=== PATIENT | female | born 1995 | race Caucasian/White ===

== ENCOUNTER 2019-08-26 06:47 | Observation (INO) | payer OTHER, SELFPAY ==
[2019-08-26] VITALS (20 sets, daily range): BP systolic 125–143; BP diastolic 64–81; PULSE 85–115; RESP 16; TEMP 36.8; O2SAT 98–100; BMI 36.1
[2019-08-26 07:39] LABS: Add Urine Microscopic? YES; Amorphous Sediment Urine Few; Appearance Urine Cloudy (Clear); Bacteria Urine Trace /hpf; Bilirubin Urine Negative (Negative); Blood Urine Negative (Negative); Color Urine Yellow (Yellow); Glucose Urine UA Negative (Negative); Ketones Urine Negative (Negative); Leukocyte Esterase Ur 1+ LEU/UL (Negative); Mucus Urine Rare /lpf; Nitrate Urine Negative (Negative); Protein Urine Negative (Negative); Squamous Epithelial Cell Urine Occasional /hpf (Few); Urobilinogen Urine Negative mg/dL (<2.0)
--- NOTE | 2019-08-26 07:54 | OBADM ---
This patient, Rebeca Gomes, admitted to the OB room 117 at 0642 for observation for c/o contractions. Patient/family oriented to hospital policies and general routines including ID bracelet, bed and alarms, visiting hours, pain management, procedures, bathroom and other care routines, personal items, smoking policy, room service/diet, and visiting hours. Patient/Family are encouraged to report perceived risks to care and to ask questions if they do not understand what they are told or what they should do.
[2019-08-26] MEDS: TERBUTALINE SULFATE 1 MG/ML VIAL 0.25 MG SUB-Q (08:32)
[2019-08-26] MEDS: LACTATED RINGERS 1,000 ML 75 ML IV CONT (08:32)
[2019-08-26] MEDS: MAGNESIUM SULF 4 GM/WATER100ML 4 GM/100 ML BAG IVPB (08:35)
[2019-08-26] MEDS: BETAMETHASONE SOD PHOS/ACETATE 30 MG/5 ML VIAL 12 MG IM (08:38)
--- NOTE | 2019-08-26 08:49 | PM.IMHP ---
H&P: HPI History of Present Illness Chief complaint: Contractions Narrative: Rebeca Gomes is a 24 year old female G1 at 27 1/7 wks here with labor. Patient with onset of contractions at 430 am that were stronger than on arrival. Patient now with minimal contractions and comfortable. No leaking of fluid or bleeding noted. course uncomplicated until this point. On initial exam with RN, patient cervix 4-5/80/BBOW. Bedside u/s shows vertex infant with normal fluid. Patient given terbutaline intially and is now being loaded with magnesium sulfate 4 g then 2 g/h. Steroids have been given. Also, premedicated with benadryl and will give ancef. Discussed with Dr. Enciso, chief resident at [facility], and will have transfer team in route and recheck patient 1 hour after last check. If unchanged or minimal change, will transfer to [facility]. Plan of care explained to patient and her family. Questions answered. [facility] Past Medical History Medical History (Updated 08/26/19 @ 08:58 by Comfort Seymour MD) Abscess of neck HSV infection No symptoms currently. No lesions visible. Has been taking valtrex. Retained myringotomy tube with complications Surgical History Surgical History (Updated 08/26/19 @ 08:56 by Comfort Seymour MD) S/P appy Social History Social History Gender identity (if verbalized by the patient): Female Meds Home Medications and Allergies Home Medications Medication Instructions Recorded Confirmed Type metoclopramide HCl [Reglan] 10 mg PO Q6H PRN #30 tablet 07/31/19 08/26/19 Rx valacyclovir [Valtrex] 500 mg PO DAILY 07/31/19 08/26/19 History PNV cmb#95-ferrous fumarate-FA 1 tablet PO DAILY 08/26/19 08/26/19 History [] cholecalciferol (vitamin D3) 2,000 unit PO DAILY 08/26/19 08/26/19 History [Vitamin D3] famotidine [Pepcid] 20 mg PO BID 08/26/19 08/26/19 History Allergies Allergy/AdvReac Type Severity Reaction Status Date / Time nitrofurantoin Allergy Unknown VOMITING Verified 07/31/19 11:52 Penicillins Allergy Unknown Hives Verified 08/26/19 07:33 vancomycin Allergy Unknown Redness of Verified 08/26/19 07:33 Skin sulfamethoxazole AdvReac Unknown VOMITING Verified 08/26/19 07:40 trimethoprim AdvReac Unknown VOMITING Verified 08/26/19 07:40 azithromycin AdvReac Vomiting Verified 08/26/19 07:40 Vital Signs Vital Signs - 24 hr 08/26/19 07:12 08/26/19 08:27 08/26/19 08:32 Pulse Rate 86 87 Blood Pressure 125/64 136/81 Pulse Oximetry 100 100 08/26/19 08:37 08/26/19 08:39 08/26/19 08:41 Pulse Rate Blood Pressure Pulse Oximetry 100 100 100 08/26/19 08:46 Pulse Rate Blood Pressure Pulse Oximetry 100 Exam Resp: Auscultation: clear to auscultation bilaterally Cardio: Rate: regular rate Rhythm: regular rhythm GI: GI Palp: Yes soft : Speculum Exam - Cervix: cervical os open (4-5 cm/ 80/BBOW) Psych: Mental Status: mental status grossly normal H&P: Results Labs Labs: Urine 08/26/19 Range/Units 07:27 Urine Color Yellow (Yellow) Urine Appearance Cloudy H (Clear) Urine pH 8.0 (5.0-9.0) Ur Specific [place] 1.010 (1.001-1.035) Urine Protein Negative (Negative) mg/dL Urine Glucose (UA) Negative (Negative) mg/dL Assessment and Plan Assessment and plan (1) 27 weeks gestation of : Code(s): Z3A.27 - 27 weeks gestation of Status: Acute (2) labor: Code(s): O60.00 - labor without delivery, unspecified trimester Status: Acute Assessment and Plan: s/p steroids Terb x 1 Magnesium sulfate 4 g and then 2g/h Benadryl then Ancef 2 g Plan to recheck cervix and if stable will transfer to [facility]. If changed, will deliver here.
[2019-08-26] MEDS: ceFAZolin 2 GM/D5W 50 ML 2 GM/50 ML BAG IVPB (09:10)
[2019-08-26] MEDS: MAGNESIUM SULF 20GM/WATER500ML 500 ML 50 MG IV CONT (09:25)
== END 2019-08-26 14:07 | disposition short-term general hospital (02) ==
LOC: ANHLDR 08-29 07:55 → ANHOBPP 08-29 07:55
PROVIDERS: Admitting Provider Obstetrics & Gynecology Gynecology; PCP Obstetrics & Gynecology; Visit Provider Obstetrics & Gynecology Gynecology
DX: O60.02 Preterm labor without delivery, second trimester (principal); O98.512 Other viral diseases complicating pregnancy, second trimester; B00.9 Herpesviral infection, unspecified; Z3A.27 27 weeks gestation of pregnancy; Z79.899 Other long term (current) drug therapy; Z88.0 Allergy status to penicillin; Z88.1 Allergy status to other antibiotic agents; Z88.2 Allergy status to sulfonamides; Z88.3 Allergy status to other anti-infective agents
CPT/HCPCS: 81001; 87086; 87088; 96361; 96365; 96372; 96375; G0378; G0379; J0690; J0702; J1200; J3105; J3475; J7120

== ENCOUNTER 2019-10-22 04:49 | Observation (INO) | payer BC, SELFPAY ==
[2019-10-22 06:31] VITALS: BP 123/72; PULSE 88
[2019-10-22 06:46] VITALS: BP 130/81; PULSE 82
[2019-10-22 07:00] VITALS: TEMP 36.8
[2019-10-22 07:01] VITALS: BP 132/86; PULSE 79
[2019-10-22 07:16] VITALS: BMI 29.3
--- NOTE | 2019-10-22 07:17 | LDADM ---
This patient, Rebeca Gomes, was admitted to Labor/Delivery/Recovery 105 on 10/22/19 at 04:49. Plans for labor, pain management and were discussed with patient. Patient/family oriented to hospital policies and general routines including ID bracelet, bed and alarms, visiting hours, pain management, procedures, bathroom and other care routines, personal items, smoking policy, room service/diet and guest tray routines, security routines, and visiting hours. Patient/Family are encouraged to report perceived risks to care and to ask questions if they do not understand what they are told or what they should do. See OBIX for further documentation.
--- NOTE | 2019-11-17 10:58 | PM.OBTRLD ---
OB - Triage/Final Diagnosis Visit Information Date of evaluation: 10/22/19 Reason for evaluation: threatened labor
== END 2019-10-22 07:35 | disposition home or self-care (01) ==
PROVIDERS: Admitting Provider Obstetrics & Gynecology; PCP Obstetrics & Gynecology; Visit Provider Obstetrics & Gynecology
DX: O47.9 False labor, unspecified (principal); Z3A.00 Weeks of gestation of pregnancy not specified
CPT/HCPCS: G0378; G0379

== ENCOUNTER 2019-10-31 05:33 | Inpatient (IN) | payer BC, SELFPAY ==
[2019-10-31] VITALS (65 sets, daily range): BP systolic 90–174; BP diastolic 44–107; PULSE 71–115; RESP 18; TEMP 36.3–37.1; O2SAT 97–100; BMI 38.7
--- NOTE | 2019-10-31 06:25 | WPDANESEPP ---
Anes - Eval Pre Procedure Procedure: labor epidural Date/Time: 10/31/19 06:25 Pre Op Diagnosis: CTX Patient Data Age: 24 Gender: F Height: Weight: Last Vital Signs Pulse 86 10/31/19 06:16 BP 145/99 H 10/31/19 06:16 Allergies Allergy/AdvReac Type Severity Reaction Status Date / Time nitrofurantoin Allergy Unknown VOMITING Verified 07/31/19 11:52 Penicillins Allergy Unknown Hives Verified 08/26/19 07:33 vancomycin Allergy Unknown Redness of Verified 08/26/19 07:33 Skin sulfamethoxazole AdvReac Unknown VOMITING Verified 08/26/19 07:40 trimethoprim AdvReac Unknown VOMITING Verified 08/26/19 07:40 azithromycin AdvReac Vomiting Verified 08/26/19 07:40 Home Medications Medication Instructions Recorded Confirmed Type metoclopramide HCl [Reglan] 10 mg PO Q6H PRN #30 tablet 07/31/19 10/22/19 Rx valacyclovir [Valtrex] 500 mg PO DAILY 07/31/19 10/22/19 History PNV cmb#95-ferrous fumarate-FA 1 tablet PO DAILY 08/26/19 10/22/19 History [] cholecalciferol (vitamin D3) 2,000 unit PO DAILY 08/26/19 10/22/19 History [Vitamin D3] famotidine [Pepcid] 20 mg PO BID 08/26/19 10/22/19 History Patient hx anesthesia problems: none Family hx anesthesia problems: none PMFSH Past Medical History Medical History (Updated 08/26/19 @ 08:58 by Comfort Seymour MD) Abscess of neck HSV infection No symptoms currently. No lesions visible. Has been taking valtrex. Retained myringotomy tube with complications Surgical History Surgical History (Updated 08/26/19 @ 08:56 by Comfort Seymour MD) S/P appy Social History Social History Gender identity (if verbalized by the patient): Female Exam Day of Procedure 10/31/19 06:25
[2019-10-31 06:43] LABS: Basophils Percent Auto 0.2 % (0.2-1.2); Eosinophils Absolute Auto 0.1 K/mm3 (0-0.3); Eosinophils Percent Auto 0.8 % (0-4.4); Hematocrit 36.6 % (37.0-47.0); Hemoglobin 12.6 g/dL (12.0-15.0); Immature Granulocyte Absolute 0.05 K/mm3 (0.00-0.031); Immature Granulocyte Percent A 0.5 % (0-0.5); Lymphocytes Absolute Auto 2.14 K/mm3 (0.9-3.2); Lymphocytes Percent Auto 19.3 % (18.3-44.2); Mean Corpuscular HGB Conc 34.4 g/dl (32-36); Mean Corpuscular Hemoglobin 31.3 pg (26-34); Mean Platelet Volume 10.5 fl (7.4-10.4); Monocytes Absolute Auto 0.9 K/mm3 (0.1-0.6); Monocytes Percent Auto 8.3 % (2.6-8.5); Neutrophils Absolute Auto 7.9 K/mm3 (1.3-6.7); Neutrophils Percent Auto 70.9 % (45.5-73.1); Platelet Count Result 225 k/mm3 (150-375); Red Blood Count 4.02 M/mm3 (4.2-5.4); White Blood Count 11.1 K/mm3 (4.5-10.0)
[2019-10-31] MEDS: LACTATED RINGERS 1,000 ML 125 ML IV CONT ×3 (06:45→12:02)
[2019-10-31] MEDS: ONDANSETRON INJ 4 MG/2 ML VIAL IV PUSH (07:33)
[2019-10-31 07:36] LABS: HIV 1/2 Ab P24 Ag Result Negative (Negative)
[2019-10-31] MEDS: FAMOTIDINE 20 MG/2 ML VIAL IV PUSH (08:12)
--- NOTE | 2019-10-31 08:29 | WPDOBADMIT ---
Obstetrics - Admit Note Admission Note: record reviewed. Pertinent additions to the history and/or any subsequent changes in the physical findings that are not consistent with the expected course of the were found. Additions to the history and/or subsequent changes in the physical findings follow. 24 yo primigravida comes to L & D at 36 weeks 3 days, confirmed by [facility] of 11/25/2019 comes in labor. complicated by h/o PTL and received twice steroid around 28 weeks at than 32 weeks.Also h/o HSV and on valtrex suppression and on exam no HSV lesuion noted.GBS neg on 09/29/2019. Comfortable with epidural AROM performed, clear fluid Cx: /-1 Expectant managment of labor.
--- NOTE | 2019-10-31 13:52 | P.PCNOB_ITS ---
OB - Delivery Note Procedure Delivery date: 10/31/19 events: Labor < 37 Weeks Intrapartal events: None Delivery augmentation: rupture of membranes Delivery monitor: external FHT and internal uterine Route of delivery: Laceration description: None Specimen: Yes (cord blood, gases, placenta) Estimated blood loss (mL): 150 Anesthesia type: Epidural Disposition: floor [place] Baby Date of : 10/31/19 Weeks of gestation at delivery: 36 Infant gender: Male Weight (pounds): 6 Weight (ounces): 5 presentation: vertex Placenta delivery description: Spontaneous cord vessel description: Nuchal Cord (x 1 tight) score one minute: 9 score five minutes: 9
--- NOTE | 2019-10-31 13:54 | PM.OBDSVD ---
OB - DS: Summary OB Procedures : None OB Procedures Intrapartum: Spontaneous Vag Delivery OB Procedures: : None Peripartum Data Delivery Method: Natural Vaginal Laceration description: None complications: none Time Spent with Patient Time attestation: Total time spent providing and/or coordinating discharge services: DS: Data Data Completed and Pending Labs on day of discharge: Labs from last 24 hours 10/31/19 10/31/19 10/31/19 06:35 06:35 06:35 WBC 11.1 H RBC 4.02 L Hgb 12.6 Hct 36.6 L MCV 91.0 MCH 31.3 MCHC 34.4 RDW 14.0 Plt Count 225 MPV 10.5 H Immature Gran % (Auto) 0.5 Neut % (Auto) 70.9 Lymph % (Auto) 19.3 [place] % (Auto) 8.3 Eos % (Auto) 0.8 Baso % (Auto) 0.2 Lymph # (Auto) 2.14 [place] # (Auto) 0.9 H Eos # (Auto) 0.1 Baso # (Auto) 0.0 Abs Immat Gran (auto) 0.05 H Absolute Neuts (auto) 7.9 H Absolute Nucleated RBC 0.0 Nucleated RBC % 0.0 RPR Pending HIV 1&2 Ab/P24 Ag 4thGn Blood Type A Negative Antibody Screen Positive Antibody Identification Inconclusive Antigen Identification Cancelled PEPPER, IgG Interpret Not Performed PEPPER, Poly Interpret Negative PEPPER, Complement Interp Not Performed 10/31/19 06:35 WBC RBC Hgb Hct MCV MCH MCHC RDW Plt Count MPV Immature Gran % (Auto) Neut % (Auto) Lymph % (Auto) [place] % (Auto) Eos % (Auto) Baso % (Auto) Lymph # (Auto) [place] # (Auto) Eos # (Auto) Baso # (Auto) Abs Immat Gran (auto) Absolute Neuts (auto) Absolute Nucleated RBC Nucleated RBC % RPR HIV 1&2 Ab/P24 Ag 4thGn Negative Blood Type Antibody Screen Antibody Identification Antigen Identification PEPPER, IgG Interpret PEPPER, Poly Interpret PEPPER, Complement Interp Discharge Plan Discharge Attending physician on discharge: Nestor Zuleta Discharging Clinician: Nestor Zuleta Patient Disposition: Home, Self-Care Activity: may shower and pelvic rest Diet: as tolerated Discharge Instructions: Education: Mom and Baby Guide Given to: Mother Follow-Up: Call your delivering provider's office for an appointment to be seen in: 4 Weeks Mom and baby should come to the [facility] for the follow-up appointment. Appointment Date/Time: Sunday, November 03, 2019 at 8:00 am What to expect at your follow-up visit: Blood Pressure Check Physical Assessment Call [phone] if you are unable to keep your appointment time. BREAST CARE: 1. Wear a snug supportive bra. 2. For engorgement discomfort: Breast Feeding: A. Apply warm moist washcloths B. Express milk as needed to relieve engorgement C. Wear loose clothing 3. For sore nipples: A. Identify correct latch-on B. Apply warm moist washcloths before and after nursing C. Air dry nipples after nursing D. May apply Lansinoh cream to nipples EPISIOTOMY/PERINEAL CARE: 1. Until bleeding stops, use your isidoro bottle after urinating 2. Change your pad frequently throughout the day 3. You may take sitz baths several times a day (fill your bathtub with warm water and soak for 20 minutes.) Do NOT bathe in the water 4. No tub baths until seen by your physician - You may shower ACTIVITY: 1. Rest as much as possible. 2. Do not exercise or lift anything heavier than your baby (such as laundry or other children.) 3. Avoid stairs or driving as much as possible. 4. Do not put anything into the vagina. No douching, tampons, or sexual activity until seen by physician. NOTIFY PHYSICIAN IF YOU HAVE ANY QUESTIONS OR IF ANY OF THE FOLLOWING SYMPTOMS OCCUR: 1. If your vaginal bleeding becomes foul smelling. 2. If your vaginal bleeding becomes more heavy than a period or if your bleeding changes from pink to bright red. However, you may pass an occasional walnut-sized clot once or twice
[2019-10-31] MEDS: BENZOCAINE 20% AER SPR (*SP) 56 GM CAN 1 SPRAY TOPICAL (15:50)
[2019-10-31] MEDS: WITCH HAZEL 40 PADS 1 PAD TOPICAL (15:50)
--- NOTE | 2019-10-31 16:24 | OBPPTRN ---
Patient transferred to post room # via (wheelchair ). Support person present. Oriented to unit, room, information board, rooming in, admission packet and security measures. Patient verbalizes understanding.
--- NOTE | 2019-10-31 17:25 | PC.NURSE ---
Consulted with patient, mother states was sleepy for first feeding and nursed using a nipple shield. Discussed and possible precautions of weak latch, sleeping feeding, inability to maintain latch and poor milk transfer which increases chance for increased weight loss, jaundice and low milk supply. Stressed the importance of good beast stimulation by: pumping, self expression and skin to skin. Reviewed infant feeding cues, frequencies, and durations of feeding. Demonstrated stimulation techniques to wake for feeding. Assisted with to breast with shield. Reviewed positioning/alignment in cross cradle, holding breast in U hold and guided asymmetrical latch on. was able to latch correctly. Infant nursed eagerly, with steady draws for short bursts followed with long pausing and falling to sleep. Reviewed signs of a correct latch, effective nursing and suck swallow ratio. was able to maintain latch without discomfort to mother. Nipple care reviewed. Demonstrated stimulation to keep awake and nursing, infant would respond to stimulation with bursts of suckling. Discussed nipple shield precautions and possible complications. Instructions given on application and cleaning of shield. Patient able to return demonstration on proper application of shield. Discussed the need to initiate pumping if continues to nurse with the shield. Patient verbalizes understanding. Instructed mother to call out for RN assistance if she is unable to latch infant for feeding or she has discomfort with nursing. Instructed feeding should be initiated three hours from start of last feeding or if feeding cues are noted before. Mother voiced understanding of information shared.
[2019-10-31] MEDS: VALACYCLOVIR HCL 500 MG TABLET 1000 MG PO (20:33)
[2019-10-31] MEDS: IBUPROFEN 600 MG TABLET PO (20:33)
[2019-10-31] MEDS: FAMOTIDINE 20 MG TABLET PO (21:18)
[2019-11-01 06:07] LABS: Hematocrit 34.6 % (37.0-47.0); Hemoglobin 11.8 g/dL (12.0-15.0)
[2019-11-01] MEDS: PANTOPRAZOLE 40 MG TABLET PO (07:29)
[2019-11-01] MEDS: FAMOTIDINE 20 MG TABLET PO ×2 (07:29→21:47)
[2019-11-01] MEDS: MULTIVIT/MIN/PREN/FOL AC/IRON TABLET 1 TAB PO (07:30)
[2019-11-01] MEDS: IBUPROFEN 600 MG TABLET PO ×2 (07:30→17:01)
[2019-11-01 07:55] VITALS: BP 124/74; PULSE 71; RESP 16; TEMP 36.9; O2SAT 98
--- NOTE | 2019-11-01 08:29 | P.PNOB_ITS ---
OB - PN: Subj Subjective Date/time seen: 11/01/19 08:29 Patient comments: no complaints, pain well controlled, tolerating diet and flatus present [place] baby status: doing well and nursing well feeding status: exclusively breast feeding OB - PN: Obj Data Labs CBC & Chem 7: 11/01/19 05:40 Labs: Laboratory Results - last 24 hr 10/31/19 11/01/19 06:35 05:40 Hgb 11.8 L Hct 34.6 L Blood Type A Negative Antibody Screen Positive Antibody Identification Inconclusive Antigen Identification Cancelled PEPPER, IgG Interpret Not Performed PEPPER, Poly Interpret Negative PEPPER, Complement Interp Not Performed OB - PN A/P Plan day: 1 Plan: routine care Comments: Desires to be circumcised. procedure discussed in detail s well as risk i.e infection, bleeding, injury to penis. Couple voiced verbalized and informed consent obtained. Time Spent With Patient Time: Total time spent is greater than 50% in coordination of care (as documented) at patient's floor/unit and/or counseling patient: Time with patient: 15 - 25 minutes Review of Systems Constitutional: Constitutional: Reports no additional constitutional complaints Cardiovascular: Cardiovascular: Reports no additional cardiovascular complaints Respiratory: Respiratory: Reports no additional respiratory complaints Gastrointestinal: Gastrointestinal: Reports no additional gastrointestinal complaints Genitourinary: Genitourinary: Reports no additional female genitourinary complaints Exam Const: General: comfortable, no acute distress, alert and awake Resp: Effort & Inspection: normal respiratory effort Auscultation: clear to auscultation bilaterally Cardio: Rate: regular rate GI: Auscultation: normal bowel sounds Other: Fundus firm below umbilicus
[2019-11-01 10:54] LABS: Rapid Plasma Reagin Non-Reactive (NonReactive)
--- NOTE | 2019-11-01 12:30 | PCDIET ---
Consulted with patient, mother states does not latch without shield and needs nipple shield for all feedings. Mother states will latch and nurse for short burst and fall asleep Discussed nipple shield precautions and possible complications. Instructions given on application and cleaning of nipple shield Reviewed feeding cues, frequencies, durations of feeding, milk supply, feeding/elimination flow sheet and signs of adequate intake. Demonstrated stimulation techniques to wake for feeding. Assisted with to breast with nipple shield. Reviewed positioning/alignment, holding breast and asymmetrical latch on. Infant was able to latch correctly nursing in short bursts with long pausing. Reviewed milk production and need for additional stimulation for milk supply and need to initiate pumping. Suggested feeding plan to attempt to breast every three hours, before if feeding cues noted. Allow infant to attempt for 10-15 min, if is effectively nursing allow to nurse up to 20 min per breast. Mother will then bottle feed expressed milk / formula.
--- NOTE | 2019-11-01 13:15 | PC.NURSE ---
Breast pump provided due to ineffective feeding/nipple shield use. Instructions given on breast pump care and usage, pumping schedule, nipple care, and collection and storage of breast milk. Encouraged [id number], breast massage and manual expression to stimulate supply. Assessed patient for correct flange size, placement and draw. Patient verbalizes and demonstrates understanding of instructions.
--- NOTE | 2019-11-01 13:22 | WPDANLDPN2 ---
Anes-Prog Note L&D Date/Time: 11/01/19 13:22 Comfortable throughout: labor and delivery Neuraxial method: epidural Epidural/Spinal procedure site: clean & non-tender Neuro status: Neuro function grossly intact. Cardiovascular status: normal Respiratory status: normal Airway patency: baseline Mental status: baseline Post-Op hydration status: normal Vital Signs: Last Vital Signs Temp 36.9 C 11/01/19 07:55 Pulse 71 11/01/19 07:55 Resp 16 11/01/19 07:55 BP 124/74 11/01/19 07:55 Pulse Ox 98 11/01/19 07:55 I/O: Intake & Output 10/31/19 11/01/19 11/01/19 23:59 07:59 15:59 Output Total 150 Balance -150 Post-procedural complaints: none Patient feedback: Patient satisfied with anesthetic care.
[2019-11-01 20:00] VITALS: BP 137/91; PULSE 69; RESP 18; TEMP 36.5; O2SAT 98
[2019-11-01] MEDS: VALACYCLOVIR HCL 500 MG TABLET 1000 MG PO (21:52)
[2019-11-02 08:00] VITALS: BP 114/70; PULSE 76; RESP 16; TEMP 36.7; O2SAT 98
--- NOTE | 2019-11-02 09:30 | PC.NURSE ---
Mother is able to independently latch with appropriate positioning/alignment. Mother will use nipple sheild if infant is unable to latch. Mother supplements 15-20 mls after each feeding, understanding to increase as desires She denies any nipple discomfort, is feeding as required and waking to feed if needed. has had a few eager attempts with in the past 24 hours, and is currently meeting outcomes for weight, output, jaundice and feeding frequencies. Mother states she feels confident to continue current feeding plan at home. Reviewed transition to breast milk, signs of adequate intake, and engorgement/relief. Instructed to call ICP if intake/output less than required. Reviewed regular medications mother is taking. Information provided per Violeta. Reviewed community resources on the [facility] website and in the Mom/Baby guide. Information on outpatient services provided. Discussed to continue with supplementation until feeding can be assessed by follow up RN or for OP LC apt. Mother has no further questions at this time.
[2019-11-02] MEDS: FAMOTIDINE 20 MG TABLET PO ×2 (09:34→09:37)
[2019-11-02] MEDS: IBUPROFEN 600 MG TABLET PO ×2 (09:35→09:37)
[2019-11-02] MEDS: MULTIVIT/MIN/PREN/FOL AC/IRON TABLET 1 TAB PO ×2 (09:35→09:37)
[2019-11-02] MEDS: PANTOPRAZOLE 40 MG TABLET PO ×2 (09:35→09:37)
--- NOTE | 2019-11-02 10:49 | PC.NURSE ---
Patient viewed the discharge video Mother & Baby Care, The First Two Weeks . Patient was given the opportunity and encouraged to ask questions. Patient verbalized understanding of information shared and has been given the mother/baby guide for home reference.
--- NOTE | 2019-11-02 10:50 | PC.NURSE ---
Mother called out for observation of feeding. Mother is able to independently latch , will latch with bursts of rhythmic suckling followed with long pausing. Infant is more awake and making eager attempts from previous day. Discussed slow progress with 36 week and to continue to work with feeding plan
[2019-11-03 08:57] VITALS: BP 140/87; PULSE 73; RESP 20; TEMP 36.8
== END 2019-11-02 13:16 | disposition home or self-care (01) | DRG 807 ==
LOC: ANHLDR 06:05 → ANHOB2 16:29
PROVIDERS: Obstetrics & Gynecology; Admitting Provider Obstetrics & Gynecology; PCP Family Medicine; Visit Provider Obstetrics & Gynecology
DX: O60.14X0 Preterm labor third trimester with preterm delivery third trimester, not applicable or unspecified (principal); Z37.0 Single live birth; Z3A.36 36 weeks gestation of pregnancy; O69.1XX0 Labor and delivery complicated by cord around neck, with compression, not applicable or unspecified
CPT/HCPCS: 36415; 85014; 85018; 85025; 86592; 86703; 86850; 86880; 86900; 86901; 86902; 88307; A9270; G0432; J2405; J2590; J2795; J7120

== ENCOUNTER → 2021-09-05 03:17 | Outpatient (CLI) | payer BC, SELFPAY ==
[2021-09-05 22:11] LABS: SARS-CoV-2 RNA PCR Negative
== END ==
PROVIDERS: PCP Family Medicine; Visit Provider Otolaryngology
DX: Z01.812 Encounter for preprocedural laboratory examination (principal); Z20.822 Contact with and (suspected) exposure to COVID-19
CPT/HCPCS: C9803; U0003; U0005

== ENCOUNTER 2021-09-08 02:45 | Day surgery (SDC) | payer BC, SELFPAY ==
[2021-09-01 09:54] VITALS: BMI 37.0
--- NOTE | 2021-09-01 10:16 | PC.NURSE ---
Report to the Outpatient Waiting Room, entrance under the green pavilion located off [facility], at 0700 on date 09-08-21. OR Time: 0900. - You and your visitor will be asked a series of questions to screen for COVID 19 for your protection. - A mask is required within the hospital. - Only one visitor is allowed at this time. Patient visitors will be guided where to wait when not with patient. Preoperative COVID Testing Requirements: No COVID Test needed if: (proof is required; if not received patient will have Rapid Test prior to entry) - Patient has received COVID Vaccine at least 14 days prior to procedure date or - Patient has positive COVID test result within last 90 days of surgery date. COVID Test needed if above criteria is not met If not COVID vaccinated a COVID test must be conducted within 72 hours of surgery and patient is asked to isolate self from time of testing until procedure. You will go to the [facility] for your COVID testing. The [facility] is located at the corner of [address] [facility]. You will only be called if COVID results are positive and your surgeon may reschedule your elective surgery date. 09-05-20 @ 0820 Patients may have clear liquids (water, carbonated beverages, clear teas, apple juice) until 3 hours prior to surgery with a maximum of 20 ounces. 0600 - No food from midnight until time of surgery - Infants may have breast milk until 4 hours before surgery, infant formula 6 hours prior to surgery. - Children will be allowed to drink immediately following surgery. If applicable, please bring a bottle or sippy cup to assist with drinking. Juice, water, soda, and popsicles are readily available. For infants on formula, please bring formula the day of surgery. Pacifiers are allowed. Take the following medications with a SIP of water the morning of surgery: sertraline Medications to discontinue per physician: N/A Date to take last dose N/A Please no make-up, nail estonian, hairspray, perfume, deodorant, or body powder the day of surgery. No jewelry (including any body piercings) or valuables the day of surgery, leave them at home. Please take a shower or bath the night before, or the morning of, surgery with an antibacterial soap. Wear comfortable, loose fitting clothing. Children are encouraged to wear pajamas. - Jewelry must be removed prior to entering the operating room. Rings and piercings that are not removed may be cut off. - The hospital will not accept responsibility for valuables. - Please leave all valuables, including medications, at home the day of surgery. If you are going home after surgery, a licensed log driver must drive you home. - NO public transportation without another adult. - We recommend that an adult stay with you for 24 hours following discharge. - We also recommend that you do not drive, make important decision, drink alcoholic beverages, or take any drugs that were not prescribed by your health care provider for at least 24 hours after your discharge time. For Pediatric surgeries, we recommend two adults accompany the child home (only one inside the building at this time). Follow any additional instructions given to you from your surgeon. Telephone instructions given to Rebeca Gomes and asked if any additional questions and then verbalized understanding. Patient advised to call surgeon office or pre surgery nurse liaison [phone] if any additional questions.
[2021-09-08] VITALS (8 sets, daily range): BP systolic 115–149; BP diastolic 64–80; PULSE 73–94; RESP 12–16; TEMP 36.2–36.4; O2SAT 95–100
[2021-09-08] MEDS: ACETAMINOPHEN 500 MG TABLET 1000 MG PO (07:49)
[2021-09-08] MEDS: LACTATED RINGERS 1,000 ML 30 ML IV CONT (08:00)
--- NOTE | 2021-09-08 08:16 | P.PNAN_ITS ---
Anes - Initial Pre Proc Eval Procedure: Operation Date: 09/08/21 09:00 Proposed Procedures p Bilateral Tonsillectomy - David Armijo MD Date/Time: 09/08/21 08:16 Surgeon: David Armijo MD Pre Op Diagnosis: chronic tonsillitis Patient Data Age: 26 Gender: F Height: 1.52 m Weight: 99.7 kg Last Vital Signs Temp 36.2 C L 09/08/21 07:30 Pulse 73 09/08/21 07:30 Resp 16 09/08/21 07:30 BP 149/80 H 09/08/21 07:30 Pulse Ox 96 09/08/21 07:30 Allergies Allergy/AdvReac Type Severity Reaction Status Date / Time vancomycin Allergy Severe RED MAN Verified 09/08/21 07:42 SYNDROME azithromycin AdvReac Unknown Vomiting Verified 09/08/21 07:42 nitrofurantoin AdvReac Unknown VOMITING Verified 09/08/21 07:42 Penicillins AdvReac Unknown YOUNG, Verified 09/08/21 07:42 DON'T KNOW EXACTLY WHAT HAPPENED sulfamethoxazole AdvReac Unknown VOMITING Verified 09/08/21 07:42 trimethoprim AdvReac Unknown VOMITING Verified 09/08/21 07:42 Home Medications Medication Instructions Recorded Confirmed Type valacyclovir [Valtrex] 500 mg PO DAILY 07/31/19 09/08/21 History etonogestrel [Nexplanon] 1 implant SUBDERMAL ONCE 09/01/21 09/01/21 History omeprazole 40 mg PO DAILY 09/01/21 09/08/21 History sertraline 50 mg PO DAILY 09/01/21 09/08/21 History Patient hx anesthesia problems: none Family hx anesthesia problems: none Results Review: All pre-operative results and documents have been reviewed as part of the pre-operative evaluation. FOR[facility]LY [facility] Past Medical History Medical History Abscess of neck HSV infection No symptoms currently. No lesions visible. Has been taking valtrex. Retained myringotomy tube with complications Surgical History Surgical History S/P appy Family History Family History Grandparent Colon cancer Diabetes mellitus Acute myocardial infarction Hypertension Social History Social History Smoking status: Never smoker Second hand tobacco smoke exposure: No Alcohol intake: current Alcohol use details: occassionally Substance use: never Substance use type: does not use Living arrangements: with family Gender identity (if verbalized by the patient): Female Spiritual care concerns: No Anes - Eval Final PreProcedure Day of Procedure 09/08/21 08:16 Patient weight: morbidly obese Heart: regular rate and rhythm Lungs: clear to auscultation Airway: Mallampati scale class 1 Neurological: alert and oriented Last oral intake: >/= 8 hours ASA classification: III Emergent: no Anesthetic plan: proceed Anesthesia type and monitoring: general ETT and standard monitoring Results Review: All pre-operative results and documents have been reviewed as part of the pre-operative evaluation. Informed Consent: The patient's anesthetic plan and its attendant risks and benefits were discussed with the patient/family/POA. Questions were solicited and answers provided to the satisfaction of the patient/family/POA.
--- NOTE | 2021-09-08 09:57 | SUR.PREOP ---
0920-PT AWARE SURGEON DELAYS SELF UNDETERMINED AMOUNT OF TIME. 0945-PT AWARE SURGEON DELAY IS ADDITIONAL 1-1 1/2 HRS, DECLINED STAFF NOTIFYING MOM OF DELAY.
--- NOTE | 2021-09-08 11:11 | PM.IMHP ---
H&P: HPI History of Present Illness Date/Time: 09/08/21 11:11 Chief Complaint: chronic tonsillitis Narrative: chronic tonsillitis Review of Systems Review of Systems: All systems reviewed & are unremarkable except as noted in HPI and below PMFSH Past Medical History Medical History Abscess of neck HSV infection No symptoms currently. No lesions visible. Has been taking valtrex. Retained myringotomy tube with complications Surgical History Surgical History S/P appy Family History Family History Grandparent Colon cancer Diabetes mellitus Acute myocardial infarction Hypertension Social History Social History Smoking status: Never smoker Second hand tobacco smoke exposure: No Alcohol intake: current Alcohol use details: occassionally Substance use: never Substance use type: does not use Living arrangements: with family Gender identity (if verbalized by the patient): Female Spiritual care concerns: No Meds Home Medications and Allergies Home Medications Medication Instructions Recorded Confirmed Type valacyclovir [Valtrex] 500 mg PO DAILY 07/31/19 09/08/21 History etonogestrel [Nexplanon] 1 implant SUBDERMAL ONCE 09/01/21 09/01/21 History omeprazole 40 mg PO DAILY 09/01/21 09/08/21 History sertraline 50 mg PO DAILY 09/01/21 09/08/21 History Allergies Allergy/AdvReac Type Severity Reaction Status Date / Time vancomycin Allergy Severe RED MAN Verified 09/08/21 07:42 SYNDROME azithromycin AdvReac Unknown Vomiting Verified 09/08/21 07:42 nitrofurantoin AdvReac Unknown VOMITING Verified 09/08/21 07:42 Penicillins AdvReac Unknown YOUNG, Verified 09/08/21 07:42 DON'T KNOW EXACTLY WHAT HAPPENED sulfamethoxazole AdvReac Unknown VOMITING Verified 09/08/21 07:42 trimethoprim AdvReac Unknown VOMITING Verified 09/08/21 07:42 Vital Signs Vital Signs - 24 hr 09/08/21 07:30 Temperature 36.2 C L Pulse Rate 73 Respiratory Rate 16 Blood Pressure 149/80 H Pulse Oximetry 96 Exam Narrative: 2+ chronic tonsil inflammation, rest of exam wnl Assessment and Plan Assessment and plan (1) Chronic tonsillitis: Code(s): J35.01 - Chronic tonsillitis Status: Acute Assessment and Plan: Here for chronic tonsillitis, plan for tonsillectomy. r/b/a reviewed, post op instructions reviewed, pt agrees to proceed. REfer to outpt H&P for full details.
--- NOTE | 2021-09-08 11:12 | WPDHPUPDATE1 ---
History and Physical Update Update Date/Time: 09/08/21 11:12 History and Physical has been reviewed, including an updated exam of the patient. There are NO changes in the patient's condition. Risks, benefits, and alternatives have been discussed and questions answered. Patient agrees to proceed with procedure.
--- NOTE | 2021-09-08 11:48 | P.OP_ITS ---
Procedure Note - Detailed Date of Procedure 09/08/21 Pre-op Diagnosis chronic tonsillitis Post-op Diagnosis same Procedure Performed tonsillectomy Surgeon David Armijo MD Anesthesia general Indications chronic tonsillitis Description of Procedure DESCRIPTION OF PROCEDURE: On the date of procedure the patient was met in the preoperative area and risk and benefits of the procedure reviewed with the parents who elected to proceed with surgery. The patient was brought back to the room by the anesthesia team and placed under general endotracheal anesthesia. Once an adequate plane of anesthesia was obtained a timeout was performed to assure the patient iden tification the procedure to be performed were correct. The patient was then prepped and draped in the normal fashion for tonsillectomy. A head wrap and shoulder roll were placed. A Yajaira-Kelton retractor was inserted into the patient's oral cavity and the patient was suspended from the Cortez stand. The left tonsil grasped with a curved tonsillar tenaculum retracted medially and removed with electrocautery set on 15 standard. After the tonsil was removed the tonsillar fossa was inspected and no bleeding was noted. The right tonsil was then grasped with a curved tenaculum and retracted medially and removed in an identical manner. The tonsillar fossa was inspected and hemostasis was obtained with suction bovie electrocautery. The patient was taken out of suspension and then placed back into suspension. The tonsillar fossas were once again inspected and no bleeding was noted. A tonsil sponge was used to gently abrade the area and no bleeding was noted. The patient was removed from suspension. The Yajaira-Kelton retractor was removed from the patient's oral cavity. There was no damage to the patient's teeth or lips. Care of the patient was then returned to anesthesia who extubated in the operating room and transferred the patient to recovery in stable condition without complication. Estimated Blood Loss 10 Drains No Packing No Pathology yes (right and left tonsil) Complications No immediate complications Condition stable Disposition PACU
[2021-09-08] MEDS: fentaNYL CITRATE INJ (*CRX) 100 MCG/2 ML VIAL 25 MCG IV PUSH ×4 (12:15→12:46)
== END 2021-09-08 13:50 | disposition home or self-care (01) ==
PROVIDERS: PCP Family Medicine; Visit Provider Otolaryngology
PROC: (CPT 42826; principal; 2021-09-08 09:00)
DX: J35.01 Chronic tonsillitis (principal); B00.9 Herpesviral infection, unspecified; E66.01 Morbid (severe) obesity due to excess calories; Z68.41 Body mass index [BMI] 40.0-44.9, adult
CPT/HCPCS: 42826; 88304; A9270; J1100; J2250; J2405; J3010; J7120

== ENCOUNTER 2022-06-25 00:53 | Emergency (ER) | payer BC, SELFPAY ==
--- NOTE | ~2022-06-25 | CT_ITS ---
EXAMINATION: CT abdomen pelvis w con DATE: 06/25/2022 04:26 INDICATION: Right lower quadrant pain TECHNIQUE: Computed tomography (CT) of the abdomen and pelvis was performed with 100 cc Omnipaque 350 intravenous contrast. The dose-length product was 1240.18 mGy-cm. Automated exposure control and ite rative reconstruction technique were employed. COMPARISON: CT dated 12/26/2009 FINDINGS: There is dependent atelectasis. Heart size normal. No significant pleural or pericardial ef fusion. Small amount of free fluid in the pelvis. There are fluid-filled distended small bowel loops with mild wall thickening and enhancement, suspicious for enteritis. Colonic diverticulosis without e vidence for diverticulitis. The liver, spleen, pancreas, adrenal glands and right kidney are unremarkable. There is a punctate 2 mm nonobstructing left renal stone. Gallbladder is present. No acute osseous abnormality. No free air . There are changes of previous appendectomy. Gallbladder is present. Small hiatal hernia. Nonobstruc tive bowel pattern. No acute osseous abnormality. IMPRESSION: 1. Mildly distended fluid-filled small bowel with mild wall thickening, suspicious for enteritis. 2: Nonobstructing 2 mm left renal stone. Reviewed, dictated and finalized at location B. IMPRESSION: 1. Mildly distended fluid-filled small bowel with mild wall thickening, suspici ous for enteritis. 2: Nonobstructing 2 mm left renal stone.
[2022-06-25 00:59] VITALS: BP 130/72; PULSE 87; RESP 18; TEMP 36.1; O2SAT 98
[2022-06-25 01:47] LABS: Basophils Percent Auto 0.2 % (0.2-1.2); Eosinophils Absolute Auto 0.1 K/mm3 (0-0.3); Eosinophils Percent Auto 0.8 % (0-4.4); Hematocrit 40.1 % (37.0-47.0); Hemoglobin 13.5 g/dL (12.0-15.0); Immature Granulocyte Absolute 0.03 K/mm3 (0.00-0.031); Immature Granulocyte Percent A 0.2 % (0-0.5); Lymphocytes Absolute Auto 0.77 K/mm3 (0.9-3.2); Lymphocytes Percent Auto 6.3 % (18.3-44.2); Mean Corpuscular HGB Conc 33.7 g/dl (32-36); Mean Corpuscular Hemoglobin 30.1 pg (26-34); Mean Corpuscular Volume 89.3 fl (80-100); Mean Platelet Volume 10.2 fl (7.4-10.4); Monocytes Absolute Auto 0.6 K/mm3 (0.1-0.6); Monocytes Percent Auto 4.5 % (2.6-8.5); Neutrophils Absolute Auto 10.8 K/mm3 (1.3-6.7); Platelet Count Result 308 k/mm3 (150-375); Red Blood Count 4.49 M/mm3 (4.2-5.4); Red Cell Distribution Width 13.7 % (11.5-14.5); White Blood Count 12.3 K/mm3 (4.5-10.0)
[2022-06-25 02:03] LABS: Add Urine Microscopic? YES; Appearance Urine Cloudy (Clear); Bilirubin Urine Negative (Negative); Blood Urine 1+ (Negative); Color Urine Yellow (Yellow); Glucose Urine UA Negative (Negative); Ketones Urine Negative (Negative); Leukocyte Esterase Ur Negative LEU/UL (Negative); Mucus Urine Few /lpf; Nitrate Urine Negative (Negative); Protein Urine Negative (Negative); Squamous Epithelial Cell Urine Moderate /hpf (Few); Urobilinogen Urine Negative mg/dL (<2.0); WBC Urine 0-3 /hpf
[2022-06-25 02:06] LABS: Alanine Aminotransferase 19 U/L (6-35); Albumin Level 4.1 g/dL (3.5-5.1); Alkaline Phosphatase 85 U/L (38-126); Anion Gap 13 mmol/L (8-16); Aspartate Amino Transferase 26 U/L (14-36); Bilirubin,Total 0.4 mg/dL (0.2-1.3); Blood Urea Nitrogen 10 mg/dL (7-17); Calcium 8.5 mg/dL (8.4-10.2); Carbon Dioxide 21 mmol/L (22-30); Chloride 106 mmol/L (98-107); Estimated CRCL calculation 105 ml/min; Estimated Glomerular Filt Rate > 60; Glucose 113 mg/dL (65-110); Lipase 52 U/L (23-300); Potassium 3.8 mmol/L (3.4-5.0); Sodium 140 mmol/L (137-145)
[2022-06-25 02:07] LABS: Specific Grav Ur 1.031 (1.001-1.035)
--- NOTE | 2022-06-25 03:48 | ED.GENADULT ---
HPI - General Adult General Chief complaint: Abdominal Pain Stated complaint: RLQ abd pain History of Present Illness HPI narrative: Patient is a 26-year-old female who presents emerged from with chief complaint of right flank and right lower quadrant pain. Patient reports has been going on for several days but is gotten worse patient states the pain is worse with movement and improved with rest patient reports he had some nausea with this denies diarrhea patient reports she has had an appendectomy in the past patient reports she is currently on her menstrual cycle. Related Data Home Medications Medication Instructions Recorded Confirmed valacyclovir 500 mg tablet 500 mg PO DAILY 07/31/19 09/08/21 (Valtrex) etonogestrel 68 mg subdermal 1 implant subdermal ONCE 09/01/21 09/01/21 implant (Nexplanon) omeprazole 20 mg capsule,delayed 40 mg PO DAILY 09/01/21 09/08/21 release sertraline 50 mg tablet 50 mg PO DAILY 09/01/21 09/08/21 Allergies Allergy/AdvReac Type Severity Reaction Status Date / Time vancomycin Allergy Severe RED MAN Verified 06/25/22 01:16 SYNDROME azithromycin AdvReac Unknown Vomiting Verified 06/25/22 01:16 nitrofurantoin AdvReac Unknown VOMITING Verified 06/25/22 01:16 Penicillins AdvReac Unknown YOUNG, Verified 06/25/22 01:16 DON'T KNOW EXACTLY WHAT HAPPENED sulfamethoxazole AdvReac Unknown VOMITING Verified 06/25/22 01:16 trimethoprim AdvReac Unknown VOMITING Verified 06/25/22 01:16 Review of Systems Review of Systems: A 10 system review of systems was completed on the patient and is negative except for what is stated in the HPI. Nursing and ancillary documentation was reviewed. COUNTS INCLUDE 234 BEDS AT THE [facility] Past Medical History Medical History Abscess of neck HSV infection No symptoms currently. No lesions visible. Has been taking valtrex. Retained myringotomy tube with complications Surgical History Surgical History S/P appy Family History Family History Grandparent Colon cancer Diabetes mellitus Acute myocardial infarction Hypertension Social History Social History Smoking status: Never smoker Second hand tobacco smoke exposure: No Alcohol intake: current Alcohol use details: occassionally Substance use: never Substance use type: does not use Gender identity (if verbalized by the patient): Female Spiritual care concerns: No Exam Narrative: GENERAL: Well-appearing, well-nourished, and in no acute distress. HEAD: Normocephalic, atraumatic. EYES: PERRLA and EOMI. ENT: Nares clear, no rhinorrhea or epistaxis. Mucous membranes moist. NECK: Supple. CHEST: Clear to auscultation. No respiratory distress. HEART: Regular rate and rhythm. No murmur heard. Normal peripheral pulses. ABDOMEN: Soft, tender to palpation in the right lower quadrant, nondistended, normal active bowel sounds. EXTREMITIES: Normal range of motion. No edema. SKIN: Warm, dry, no rash. NEURO: No focal deficits. Alert and oriented x3. PSYCH: Normal mood and affect. Course Course Emergency Course: CT scan showed evidence of nonspecific enteritis. No evidence of hydronephrosis or obstructing kidney stone. Patient has had a prior appendectomy. Vital Signs Vital signs: Vital Signs Temperature 36.1 C L 06/25/22 00:59 Pulse Rate 87 06/25/22 00:59 Respiratory Rate 18 06/25/22 00:59 Blood Pressure 130/72 06/25/22 00:59 Pulse Oximetry 98 06/25/22 00:59 Temperature 36.1 C L 06/25/22 00:59 Pulse Rate 87 06/25/22 00:59 Respiratory Rate 18 06/25/22 00:59 Blood Pressure 130/72 06/25/22 00:59 Pulse Oximetry 98 06/25/22 00:59 Medical Decision Making Vital Signs Vital Signs: Vital Signs Temperatur
[2022-06-25] MEDS: ONDANSETRON INJ 4 MG/2 ML VIAL IV PUSH (04:02)
[2022-06-25] MEDS: SODIUM CHLORIDE 0.9% IV 1,000 ML 999 ML IV CONT (04:02)
[2022-06-25] MEDS: KETOROLAC 15 MG/ML VIAL (*BKC) IV PUSH (05:03)
[2022-06-25 05:14] VITALS: BP 139/74; PULSE 73; RESP 18; TEMP 37.1; O2SAT 100
== END 2022-06-25 05:20 | disposition home or self-care (01) ==
PROVIDERS: Emergency Provider Emergency Medicine; PCP Family Medicine
DX: R10.84 Generalized abdominal pain (principal)
CPT/HCPCS: 36415; 74177; 80053; 81001; 81025; 83690; 85025; 96361; 96374; 96375; 99284; J1885; J2405; J7030; Q9967

== ENCOUNTER → 2022-11-12 09:34 | Outpatient (CLI) | payer BC, SELFPAY ==
--- NOTE | ~2022-11-12 | US_ITS ---
Pelvic ultrasound. Clinical History: First trimester screening, uncertain dates Technique: Realtime transabdominal and transvaginal scanning of the pelvis was performed. Color flow Doppler and Doppler spectral analysis were performed. Findings: The uterus is anteverted, and contains an intrauterine gestation. Subchorionic hemorrhage m easures 1.8 x 0.6 x 0.4 cm. Ganister-rump length of 2 mm corresponds to an estimated gestational age of 5 weeks 5 days. cardiac motion is present, but precise measurement is not possible due to techn ical limitations related to the very small size of the pole. The right ovary measures 2.6 x 1.4 x 1.6 cm. No significant right ovarian or adnexal mass is seen. The left ovary is not visualized. No significant left ovarian or adnexal mass is seen. There is no evidence of free fluid in the cul de sac. Impression: Intrauterine gestation with estimated gestational age of 5 weeks 5 days, as detailed above. car diac motion visualized, but cannot be adequately measured due to small size of the fetus/technical li mitations. Small subchorionic hemorrhage, as noted above. Reviewed, dictated and finalized at location M. Impression: Intrauterine gestation with estimated gestational age of 5 weeks 5 days, as det zoya above. cardiac motion visualized, but cannot be adequately measured due to small size of the fetus/technical limitations. Small subchorionic hemorrhage, as noted above.
== END ==
PROVIDERS: PCP Obstetrics & Gynecology Gynecology; Visit Provider Obstetrics & Gynecology Gynecology
DX: Z36.87 Encounter for antenatal screening for uncertain dates (principal); Z3A.01 Less than 8 weeks gestation of pregnancy
CPT/HCPCS: 76817

== ENCOUNTER → 2022-12-03 10:13 | Outpatient (CLI) | payer BC, SELFPAY ==
--- NOTE | ~2022-12-03 | US_ITS ---
EXAMINATION: US OB transvaginal DATE: 12/03/2022 11:09 INDICATION: Subchorionic hematoma during first trimester TECHNIQUE: Real-time pelvic transabdominal and transvaginal ultrasound was performed. COMPARISON: 11/13/2019 FINDINGS: The uterus measures 10.0 x 6.2 x 7.2 cm there is an approximately 1.7 x 1.3 x 1.2 cm subcho rionic hematoma with slight increase in size. There is an intrauterine gestational sac. A yolk sac is identified. heart motion is identified measuring 162 beats per minute (bpm) by M-mode Doppler. The crown rump length measures 2.1 cm, which correlates with an estimated gestational age of 8 weeks and 5 day(s) (+/-) 5 day(s). The right ovary measures 2.3 x 1.5 x 2.7 cm. The left ovary measures 2.8 x 1.6 x 2.5 cm. There is nor mal vascular flow in the ovaries. There is no free fluid in the pelvis. IMPRESSION: 1. Live intrauterine with an estimated gestational age of 8 weeks and 5 day(s) (+/-) 5 day( s) and an estimated delivery date of 07/10/2023. 2. Small subchorionic hematoma with slight increase in size. Reviewed, dictated and finalized at location L. IMPRESSION: 1. Live intrauterine with an estimated gestational age of 8 weeks and 5 day(s) (+/-) 5 day(s) and an estimated delivery date of 07/10/2023. 2. Small subchorionic hematoma with slight increase in size.
== END ==
PROVIDERS: PCP Obstetrics & Gynecology Gynecology; Visit Provider Obstetrics & Gynecology Gynecology
DX: O36.8910 Maternal care for other specified fetal problems, first trimester, not applicable or unspecified (principal); Z3A.08 8 weeks gestation of pregnancy
CPT/HCPCS: 76817

== ENCOUNTER 2022-12-08 11:14 | Emergency (ER) | payer BC, SELFPAY ==
--- NOTE | ~2022-12-08 | US_ITS ---
EXAMINATION: US OB <=14 wk fetus w TV DATE: 12/08/2022 13:33 INDICATION: Left adnexal pain. TECHNIQUE: Real-time transabdominal and transvaginal pelvic ultrasound was performed. COMPARISON: Ultrasound 12/03/2022, 11/12/2022 FINDINGS: TRANSABDOMINAL ULTRASOUND: The uterus measures 10.7 x 6.4 x 9.2 cm. TRANSVAGINAL ULTRASOUND: There is an intrauterine gestational sac. A yolk sac is identified. The fet al crown rump length measures 2.9 cm, which correlates with an estimated gestational age of 9 weeks a nd 5 day(s) (+/-) 6 day(s). heart motion is identified measuring 168 beats per minute (bpm) by M-mode Doppler. There is no subchorionic hemorrhage. The cervical length is normal on transvaginal im ages. The right ovary measures 2.5 x 1.4 x 1.1 cm. The left ovary measures 3.2 x 1.6 x 2.4 cm. There is normal vascular flow in the ovaries. There is no free fluid in the pelvis. IMPRESSION: 1. Single living intrauterine gestation with estimated date of delivery of 07/10/2023 based on the u ltrasound from 12/03/2022. Reviewed, dictated and finalized at location A. IMPRESSION: 1. Single living intrauterine gestation with estimated date of delivery of 06/2023 based on the ultrasound from 12/03/2022.
[2022-12-08 11:16] VITALS: BP 130/79; PULSE 83; RESP 16; TEMP 36.3; O2SAT 100
[2022-12-08 11:32] LABS: Basophils Percent Auto 0.3 % (0.2-1.2); Eosinophils Absolute Auto 0.1 K/mm3 (0-0.3); Eosinophils Percent Auto 0.9 % (0-4.4); Hematocrit 42.6 % (37.0-47.0); Hemoglobin 14.3 g/dL (12.0-15.0); Immature Granulocyte Absolute 0.03 K/mm3 (0.00-0.031); Immature Granulocyte Percent A 0.3 % (0-0.5); Lymphocytes Absolute Auto 1.42 K/mm3 (0.9-3.2); Lymphocytes Percent Auto 14.5 % (18.3-44.2); Mean Corpuscular HGB Conc 33.6 g/dl (32-36); Mean Corpuscular Hemoglobin 30.3 pg (26-34); Mean Corpuscular Volume 90.3 fl (80-100); Mean Platelet Volume 10.5 fl (7.4-10.4); Monocytes Absolute Auto 0.4 K/mm3 (0.1-0.6); Neutrophils Absolute Auto 7.8 K/mm3 (1.3-6.7); Platelet Count Result 240 k/mm3 (150-375); Red Blood Count 4.72 M/mm3 (4.2-5.4); Red Cell Distribution Width 13.8 % (11.5-14.5); White Blood Count 9.8 K/mm3 (4.5-10.0)
[2022-12-08 11:44] VITALS: BP 112/62; PULSE 74; RESP 18; TEMP 36.4; O2SAT 98
[2022-12-08 11:45] LABS: Alanine Aminotransferase 30 U/L (6-35); Albumin Level 4.2 g/dL (3.5-5.1); Alkaline Phosphatase 75 U/L (38-126); Anion Gap 8 mmol/L (8-16); Aspartate Amino Transferase 24 U/L (14-36); Bilirubin,Total 0.5 mg/dL (0.2-1.3); Blood Urea Nitrogen 5 mg/dL (7-17); Calcium 8.8 mg/dL (8.4-10.2); Carbon Dioxide 21 mmol/L (22-30); Chloride 109 mmol/L (98-107); Estimated CRCL calculation 129 ml/min; Estimated Glomerular Filt Rate > 60; Glucose 132 mg/dL (65-110); Lipase 50 U/L (23-300); Potassium 3.3 mmol/L (3.4-5.0); Sodium 138 mmol/L (137-145)
[2022-12-08 12:15] LABS: Appearance Urine Cloudy (Clear); Bacteria Urine 2+ /hpf; Bilirubin Urine Negative (Negative); Blood Urine Negative (Negative); Color Urine Yellow (Yellow); Glucose Urine UA Negative (Negative); Ketones Urine Trace mg/dL (Negative); Leukocyte Esterase Ur 1+ LEU/UL (Negative); Need Manual Microscopic Reviewed; Nitrate Urine Negative (Negative); Protein Urine 1+ mg/dL (Negative); Specific Grav Ur 1.021 (1.001-1.035); Squamous Epithelial Cell Urine Few /hpf (Few); WBC Urine 21-50 /hpf; pH Urine 6.5 (5.0-9.0)
[2022-12-08 12:33] LABS: Add Urine Microscopic? YES
[2022-12-08 14:22] VITALS: BP 105/67; PULSE 65; RESP 18; O2SAT 98
--- NOTE | 2022-12-08 15:24 | ED.ABDPAIN ---
HPI - Abdominal Pain General Chief Complaint: Abdominal Pain Stated Complaint: - pain in abdomen/back Time Seen by Provider: 12/08/22 11:30 Source: patient Limitations: no limitations History of Present Illness HPI narrative: 27-year-old 2 para 1 about 9 weeks of gestation here with complaints of left lower abdominal pain started about 1030 this morning. She states the pain is radiating to her back. She denies any nausea, vomiting ,Vaginal bleeding or discharge. MD elicited complaint: abdominal pain Pertinent past history: none Onset (ago): hour(s) (2) Pain Consistency: constant Location: LLQ Severity: moderate Quality: aching Radiation: back Exacerbating factors: nothing Relieving factors: nothing Related Data Home Medications Medication Instructions Recorded Confirmed valacyclovir 500 mg tablet 500 mg PO DAILY 07/31/19 09/08/21 (Valtrex) etonogestrel 68 mg subdermal 1 implant subdermal ONCE 09/01/21 09/01/21 implant (Nexplanon) omeprazole 20 mg capsule,delayed 40 mg PO DAILY 09/01/21 09/08/21 release sertraline 50 mg tablet 50 mg PO DAILY 09/01/21 09/08/21 Allergies Allergy/AdvReac Type Severity Reaction Status Date / Time vancomycin Allergy Severe RED MAN Verified 06/25/22 01:16 SYNDROME azithromycin AdvReac Unknown Vomiting Verified 06/25/22 01:16 nitrofurantoin AdvReac Unknown VOMITING Verified 06/25/22 01:16 Penicillins AdvReac Unknown YOUNG, Verified 06/25/22 01:16 DON'T KNOW EXACTLY WHAT HAPPENED sulfamethoxazole AdvReac Unknown VOMITING Verified 06/25/22 01:16 trimethoprim AdvReac Unknown VOMITING Verified 06/25/22 01:16 Review of Systems Review of Systems: All systems reviewed & are unremarkable except as noted in HPI and below Constitutional: Constitutional: Reports no additional constitutional complaints Eyes: Eyes: Reports no additional eye complaints ENT: Reports system reviewed and no additional complaints, except as documented Respiratory: Respiratory: Reports no additional respiratory complaints Gastrointestinal: Gastrointestinal: Reports as per HPI Genitourinary: Genitourinary: Reports no additional female genitourinary complaints Musculoskeletal: Musculoskeletal: Reports no additional musculoskeletal complaints PMFSH Past Medical History Medical History Abscess of neck HSV infection No symptoms currently. No lesions visible. Has been taking valtrex. Retained myringotomy tube with complications Surgical History Surgical History S/P appy Family History Family History Grandparent Colon cancer Diabetes mellitus Acute myocardial infarction Hypertension Social History Social History Smoking status: Never smoker Second hand tobacco smoke exposure: No Alcohol intake: current Alcohol use details: occassionally Substance use: never Substance use type: does not use Living arrangements: with family Gender identity (if verbalized by the patient): Female Spiritual care concerns: No Exam Narrative: GENERAL: Well-appearing, well-nourished, and in no acute distress. HEAD: Normocephalic, atraumatic. EYES: PERRLA and EOMI. NECK: Supple. CHEST: Clear to auscultation. No respiratory distress. HEART: Regular rate and rhythm. No murmur heard. Normal peripheral pulses. ABDOMEN: Soft, mild tenderness in the left inguinal area, nondistended, normal active bowel sounds. EXTREMITIES: Normal range of motion. No edema. SKIN: Warm, dry, no rash. NEURO: No focal deficits. Alert and oriented x3. PSYCH: Normal mood and affect. Course Course Emergency Course: Patient comfortably laying on the bed in no discomfort informed her about the lab work, ultrasound findings. Recommended her to take antibiotic as
[2022-12-08 15:34] VITALS: BP 124/70; PULSE 67; RESP 18; O2SAT 100
== END 2022-12-08 15:40 | disposition home or self-care (01) ==
PROVIDERS: Emergency Medicine; Emergency Provider Family Medicine; PCP Obstetrics & Gynecology Gynecology
DX: O23.41 Unspecified infection of urinary tract in pregnancy, first trimester (principal); N39.0 Urinary tract infection, site not specified; O26.891 Other specified pregnancy related conditions, first trimester; R10.32 Left lower quadrant pain; Z3A.09 9 weeks gestation of pregnancy
CPT/HCPCS: 36415; 76801; 76817; 80053; 81001; 81025; 83690; 85025; 87086; 87088; 99284

== ENCOUNTER 2023-02-22 22:57 | Observation (INO) | payer BC, SELFPAY ==
[2023-02-22 23:30] VITALS: BMI 43.0
--- NOTE | 2023-02-22 23:30 | PC.NURSE ---
Pt reports to OB stating she has been been having lower abdominal pain that radiates to her back x2 hours. Pt states she has a 25 minute car ride here and she had this pain twice on the way here. Pt reports she was at 6 flags all day and walking all day. Pt reports she has a hx of labor at 27 weeks, she was 6 cm and was delivered at 36 weeks. heart tones at 135 bpm with hand held monitor.
[2023-02-22 23:49] LABS: Appearance Urine Cloudy (Clear); Bacteria Urine None Seen /hpf; Bilirubin Urine Negative (Negative); Blood Urine Negative (Negative); Color Urine Yellow (Yellow); Glucose Urine UA Negative (Negative); Ketones Urine Negative (Negative); Leukocyte Esterase Ur Trace LEU/UL (NEGATIVE); Nitrate Urine Negative (Negative); Non Pathogenic Casts 0-2; Protein Urine Negative (Negative); RBC Urine 0-2 /hpf (0-2); Squamous Epithelial Cell Urine Occasional /hpf (Few); WBC Urine 0-5 /hpf (0-3)
[2023-02-22 23:51] LABS: Add Urine Microscopic? YES
--- NOTE | 2023-02-23 01:10 | PC.NURSE ---
Called Brian Prater about patient. Left a message to return phone call.
--- NOTE | 2023-02-23 01:25 | PC.NURSE ---
Called Brian Leyva about pt on unit. She did not answer, left message to return phone call.
--- NOTE | 2023-02-23 01:38 | PC.NURSE ---
Called Biran Leyva cell phone two times back to back then pager.
--- NOTE | 2023-02-23 01:44 | PC.NURSE ---
Called Dalia Leyva's number, no answer. Left message to call hospital back.
[2023-02-23 01:56] VITALS: BP 124/62; PULSE 68
--- NOTE | 2023-02-24 17:51 | PM.OBTRLD ---
OB - Triage/Final Diagnosis Visit Information Reason for evaluation: threatened labor Comments/Additional reasons for admission: I have assessed the risk for this patient, Rebeca Gomes, and determined that she would benefit from observation care. Evaluation Laboratory results: Laboratory Tests 02/22/23 23:32 Urine Color Yellow Urine Appearance Cloudy H Urine pH 6.0 Ur Specific [place] 1.020 Urine Protein Negative Urine Glucose (UA) Negative Urine Ketones Negative Ur Blood (Man) Negative Urine Nitrate Negative Urine Bilirubin Negative Urine Urobilinogen 1.0 Ur Leukocyte Esterase Trace H Urine RBC 0-2 Urine WBC 0-5 Ur Squamous Epith Cells Occasional Urine Bacteria None seen Urine Casts 0-2
== END 2023-02-23 02:07 | disposition home or self-care (01) ==
PROVIDERS: Admitting Provider Obstetrics & Gynecology Gynecology; PCP Family Medicine; Visit Provider Advanced Practice Midwife
DX: O47.02 False labor before 37 completed weeks of gestation, second trimester (principal); Z3A.20 20 weeks gestation of pregnancy
CPT/HCPCS: 81001; G0378; G0379

== ENCOUNTER 2023-04-22 09:37 | Outpatient (CLI) | payer BC, SELFPAY ==
[2023-04-22 11:18] LABS: Hematocrit 34.3 % (37.0-47.0); Hemoglobin 11.5 g/dL (12.0-15.0)
[2023-04-22 11:41] LABS: Glucose 1 Hour PP 50gm Dose 150 mg/dL
[2023-04-22 12:17] LABS: HIV 1/2 Ab P24 Ag Result Negative (Negative)
[2023-04-22 12:28] LABS: Vitamin D 25 Hydroxy 29.1 ng/mL
[2023-04-24] MEDS: RHO(D) IMMUNE GLOBULIN 300 MCG/2 ML SYRINGE IM (18:23)
== END 2023-04-22 09:38 | disposition home or self-care (01) ==
LOC: ANHLAB 09:39
PROVIDERS: PCP Family Medicine; Visit Provider Advanced Practice Midwife
DX: O36.0130 Maternal care for anti-D [Rh] antibodies, third trimester, not applicable or unspecified (principal); Z36.9 Encounter for antenatal screening, unspecified
CPT/HCPCS: 36415; 82306; 82947; 85014; 85018; 85461; 86703; 86850; 86900; 86901; 90384; 96372; G0432; J2790

== ENCOUNTER 2023-04-25 00:59 | Observation (INO) | payer BC, SELFPAY ==
[2023-04-25] VITALS (34 sets, daily range): BP systolic 113–129; BP diastolic 55–76; PULSE 62–94; TEMP 36.6; O2SAT 90–100; BMI 45.2
--- NOTE | ~2023-04-25 | US_ITS ---
US OB limited w BPP DATE: 04/25/2023 08:28 INDICATION: Left flank pain TECHNIQUE: Real-time imaging, Doppler analysis. Biophysical profile. COMPARISON: 12/08/2022 obstetrical ultrasound examination FINDINGS: Live cool intrauterine gestation, fetus very active during examination, in vertex pres entation. heart rate of 128 bpm. Anterior placenta. Amniotic fluid index measures 14.0 cm, within normal range. (5th percentile SARAI: 9.2 cm; 95th percent ile SARAI: 23.1 cm). BIOPHYSICAL PROFILE reported by final operations technician: breathin out of 2 movement: 2 out of 2 tone: 2 out of 2 Amniotic fluid pocket: 2 out of 2 Total score: 8 out of 8 IMPRESSION: Normal biophysical profile score of 8 out of 8 Reviewed, dictated and finalized at [facility]. Reviewed, dictated and finalized at location [facility].
--- NOTE | ~2023-04-25 | US_ITS ---
US renal BI DATE: 04/25/2023 08:39 INDICATION: Left flank pain; 29 week gravid patient. TECHNIQUE: Real-time imaging of kidneys and urinary bladder COMPARISON: 06/25/2022 CT abdomen pelvis FINDINGS: The right kidney measures approximately 10.4 cm length, left kidney approximately 12.1 cm l ength, compared to 10 cm length on 06/25/2022 CT examination). There is mild hydronephrosis of each k idney which may be due to the gravid state; given the history of left flank pain, left ureteral calcu fabi is not excluded. The urinary bladder is unremarkable.. IMPRESSION: Mild left renal enlargement compared to 06/25/2022 and mild bilateral hydronephrosis. Reviewed, dictated and finalized at [facility]. Reviewed, dictated and finalized at location [facility]. IMPRESSION: Mild left renal enlargement compared to 06/25/2022 and mild bilater al hydronephrosis.
[2023-04-25 02:25] LABS: Appearance Urine Cloudy (Clear); Bacteria Urine 1+ /hpf; Bilirubin Urine Negative (Negative); Blood Urine 3+ (Negative); Color Urine Dark Yellow (Yellow); Glucose Urine UA Negative (Negative); Ketones Urine Trace mg/dL (Negative); Leukocyte Esterase Ur Trace LEU/UL (Negative); Nitrate Urine Negative (Negative); Non Pathogenic Casts 0-2; Protein Urine Trace mg/dL (Negative); RBC Urine >100 /hpf (0-2); Specific Grav Ur 1.023 (1.001-1.035); Squamous Epithelial Cell Urine Few /hpf (Few); pH Urine 5.5 (5.0-9.0)
[2023-04-25 02:31] LABS: Add Urine Microscopic? YES
[2023-04-25] MEDS: fentaNYL CITRATE INJ (*CRX) 100 MCG/2 ML VIAL 50 MCG IV PUSH (02:40)
[2023-04-25] MEDS: ONDANSETRON INJ 4 MG/2 ML VIAL IV PUSH (02:40)
[2023-04-25] MEDS: LACTATED RINGERS 1,000 ML 999 ML IV CONT (02:40)
[2023-04-25 03:03] LABS: Hemoglobin 10.7 g/dL (12.0-15.0); Mean Corpuscular HGB Conc 32.4 g/dl (32-36); Mean Corpuscular Hemoglobin 29.8 pg (26-34); Mean Corpuscular Volume 91.9 fl (80-100); Mean Platelet Volume 10.9 fl (7.4-10.4); Platelet Count Result 250 k/mm3 (150-375); Red Blood Count 3.59 M/mm3 (4.2-5.4); Red Cell Distribution Width 13.1 % (11.5-14.5); White Blood Count 15.1 K/mm3 (4.5-10.0)
[2023-04-25 03:20] LABS: Alanine Aminotransferase 23 U/L (6-35); Albumin Level 3.3 g/dL (3.5-5.1); Alkaline Phosphatase 135 U/L (38-126); Anion Gap 5 mmol/L (8-16); Aspartate Amino Transferase 28 U/L (14-36); Bilirubin,Total 0.3 mg/dL (0.2-1.3); Blood Urea Nitrogen 6 mg/dL (7-17); Calcium 8.2 mg/dL (8.4-10.2); Carbon Dioxide 20 mmol/L (22-30); Chloride 104 mmol/L (98-107); Estimated CRCL calculation 157 ml/min; Estimated Glomerular Filt Rate > 60; Glucose 104 mg/dL (65-110); Potassium 3.2 mmol/L (3.4-5.0); Sodium 129 mmol/L (137-145)
[2023-04-25] MEDS: fentaNYL CITRATE INJ (*CRX) 100 MCG/2 ML VIAL IV PUSH (03:47)
--- NOTE | 2023-04-25 03:52 | OBADM ---
This patient, Rebeca Gomes, admitted to the OB room OB Post 113 for observation. Patient/family oriented to hospital policies and general routines including ID bracelet, bed and alarms, visiting hours, pain management, procedures, bathroom and other care routines, personal items, smoking policy, room service/diet, and visiting hours. Patient/Family are encouraged to report perceived risks to care and to ask questions if they do not understand what they are told or what they should do.
[2023-04-25] MEDS: POTASSIUM CHLORIDE INJ 40 MEQ in SODIUM CHLORIDE 0.9% IV 500 ML 130 MEQ IVPB (05:19)
[2023-04-25] MEDS: HYDROcodone/acetaminophen (*CRX) 5-325 MG TABLET PO ×2 (05:19→06:56)
--- NOTE | 2023-04-25 06:51 | PM.IMHP ---
H&P: HPI History of Present Illness Date/Time: 04/25/23 06:30 Chief Complaint: Left flank pain Narrative: Sudden onset left flank and left lower abdominal pain last night. Denies regular uterine contractions, vaginal bleeding, or rupture of membranes. Reports good movement. Review of Systems Constitutional: Constitutional: Reports no additional constitutional complaints Genitourinary: Comments: Difficulty initiating urine stream Musculoskeletal: Musculoskeletal: Reports back pain (left flank) Comments: Left lower abdominal pain. [facility] Past Medical History Medical History Abscess of neck HSV infection No symptoms currently. No lesions visible. Has been taking valtrex. Retained myringotomy tube with complications Surgical History Surgical History S/P appy Family History Family History Grandparent Colon cancer Diabetes mellitus Acute myocardial infarction Hypertension Social History Social History Smoking status: Never smoker Second hand tobacco smoke exposure: No Alcohol intake: current Alcohol use details: occassionally Substance use: never Substance use type: does not use Living arrangements: with family Gender identity (if verbalized by the patient): Female Spiritual care concerns: No Meds Home Medications and Allergies Home Medications Medication Instructions Recorded Confirmed Type valacyclovir 500 mg tablet 500 mg PO DAILY 07/31/19 02/23/23 History (Valtrex) omeprazole 20 mg capsule,delayed 40 mg PO DAILY 09/01/21 02/23/23 History release sertraline 50 mg tablet 200 mg PO DAILY 09/01/21 02/23/23 History aspirin 81 mg tablet 81 mg PO DAILY 02/23/23 02/23/23 History bupropion HCl 150 mg 24 hr tablet, 150 mg PO DAILY 02/23/23 02/23/23 History extended release progesterone micronized 200 mg 200 mg vaginal HS 02/23/23 02/23/23 History capsule Allergies Allergy/AdvReac Type Severity Reaction Status Date / Time vancomycin Allergy Severe RED MAN Verified 02/23/23 00:27 SYNDROME azithromycin AdvReac Unknown Vomiting Verified 02/23/23 00:27 nitrofurantoin AdvReac Unknown VOMITING Verified 02/23/23 00:27 Penicillins AdvReac Unknown YOUNG, Verified 02/23/23 00:27 DON'T KNOW EXACTLY WHAT HAPPENED sulfamethoxazole AdvReac Unknown VOMITING Verified 02/23/23 00:27 trimethoprim AdvReac Unknown VOMITING Verified 02/23/23 00:27 Vital Signs Vital Signs - 24 hr 04/25/23 01:31 04/25/23 01:45 04/25/23 02:00 Pulse Rate 90 86 91 Blood Pressure 113/73 117/74 128/76 Pulse Oximetry 04/25/23 02:15 04/25/23 02:41 04/25/23 02:46 Pulse Rate 94 Blood Pressure 121/55 L Pulse Oximetry 100 96 04/25/23 02:51 04/25/23 02:56 04/25/23 03:01 Pulse Rate Blood Pressure Pulse Oximetry 96 95 94 04/25/23 03:06 04/25/23 03:11 04/25/23 03:16 Pulse Rate Blood Pressure Pulse Oximetry 98 98 97 04/25/23 03:21 04/25/23 03:26 04/25/23 03:31 Pulse Rate Blood Pressure Pulse Oximetry 99 97 95 04/25/23 03:36 04/25/23 03:41 04/25/23 03:46 Pulse Rate Blood Pressure Pulse Oximetry 96 95 96 04/25/23 03:51 04/25/23 03:56 04/25/23 05:34 Pulse Rate Blood Pressure Pulse Oximetry 90 90 99 04/25/23 05:36 04/25/23 05:41 04/25/23 05:46 Pulse Rate Blood Pressure Pulse Oximetry 95 97 98 04/25/23 05:51 04/25/23 05:56 04/25/23 06:01 Pulse Rate Blood Pressure Pulse Oximetry 97 97 100 04/25/23 06:06 04/25/23 06:11 Pulse Rate Blood Pressure Pulse Oximetry 99 98 Exam Const: General: uncomfortable (Rating pain 8/10) Other: Pain relieved with IV fentanyl but did return. Resp: Effort & Inspection: normal respiratory effort
--- NOTE | 2023-04-25 09:21 | WPDURCON ---
Assessment and Plan Assessment and plan (1) Left flank pain: Code(s): R10.9 - Unspecified abdominal pain Status: Acute Assessment and Plan: Transient left flank uncertain etiology. Given the urinalysis findings and unremarkable renal ultrasound I suspect this may related to either urinary tract infection or a spontaneously passed ureteral calculus. Send urine for culture and empirically start IV Ancef. I do not anticipate need for any additional intervention at this time, barring the absence of recurrent significant pain. Urology Consult Note HPI Date Seen: 04/25/23 Requesting Physician: Comfort Seymour MD Primary Care Provider: Todd Jackman, Consult Narrative Narrative: Rebeca Gomes is a 27 year old female who is at 29 weeks gestation of her first . She is admitted with a 2 day history of abdominal and left flank pain. This started as a generalized abdominal discomfort but progressed to left flank pain radiating to her left lower quadrant. It was not associated with fevers chills or gross hematuria. Patient has no prior history of urolithiasis and no prior similar size episodes of pain during the course of this . renal ultrasound shows scant, symmetrical bilateral hydronephrosis. There are no visible renal or ureteral calculi on the ultrasound. It does not appear as if the ureteral orifices were evaluated for ureteral jets. Review of Systems Cardiovascular: Cardiovascular: Denies chest pain, Denies lightheadedness, Denies palpitations and Denies dyspnea Respiratory: Respiratory: Denies dyspnea Gastrointestinal: Gastrointestinal: Denies diarrhea, Denies nausea and Denies vomiting Genitourinary: Genitourinary: Denies hematuria and Denies dysuria Endocrine: Endocrine: Denies palpitations [facility] Past Medical History Medical History Abscess of neck HSV infection No symptoms currently. No lesions visible. Has been taking valtrex. Retained myringotomy tube with complications Surgical History Surgical History S/P appy Family History Family History Grandparent Colon cancer Diabetes mellitus Acute myocardial infarction Hypertension Social History Social History Smoking status: Never smoker Second hand tobacco smoke exposure: No Alcohol intake: current Alcohol use details: occassionally Substance use: never Substance use type: does not use Living arrangements: with family Gender identity (if verbalized by the patient): Female Spiritual care concerns: No Meds Home Medications and Allergies Home Medications Medication Instructions Recorded Confirmed Type valacyclovir 500 mg tablet 500 mg PO DAILY 07/31/19 02/23/23 History (Valtrex) omeprazole 20 mg capsule,delayed 40 mg PO DAILY 09/01/21 02/23/23 History release sertraline 50 mg tablet 200 mg PO DAILY 09/01/21 02/23/23 History aspirin 81 mg tablet 81 mg PO DAILY 02/23/23 02/23/23 History bupropion HCl 150 mg 24 hr tablet, 150 mg PO DAILY 02/23/23 02/23/23 History extended release progesterone micronized 200 mg 200 mg vaginal HS 02/23/23 02/23/23 History capsule Allergies Allergy/AdvReac Type Severity Reaction Status Date / Time vancomycin Allergy Severe RED MAN Verified 02/23/23 00:27 SYNDROME azithromycin AdvReac Unknown Vomiting Verified 02/23/23 00:27 nitrofurantoin AdvReac Unknown VOMITING Verified 02/23/23 00:27 Penicillins AdvReac Unknown YOUNG, Verified 02/23/23 00:27 DON'T KNOW EXACTLY WHAT HAPPENED sulfamethoxazole AdvReac Unknown VOMITING Verified 02/23/23 00:27 trimethoprim AdvReac Unknown VOMITING Verified 02/23/23 00:27 Vital Signs Vital Signs - 24 hr 04/25/23 01:31 04/25/23 01:45
[2023-04-25] MEDS: ceFAZolin 500 MG in DEXTROSE 5% IN WATER 50 ML 100 MG IVPB (11:15)
--- NOTE | 2023-04-25 12:15 | PC.NURSE ---
Spoke with CNM on phone at 1214 regarding urology consult and US results. Notified provider that patient currently rates her pain a 2/10 and has not taken anything for pain since 0656 today. Verbal orders given for discharge home with Brennan and Milagros as well as orders for pelvic rest and a followup in the office next week. Patient agrees with plan of care and has no questions at this time.
[2023-04-25 12:29] LABS: Alanine Aminotransferase 23 U/L (6-35); Alkaline Phosphatase 126 U/L (38-126); Anion Gap 6 mmol/L (8-16); Aspartate Amino Transferase 25 U/L (14-36); Bilirubin,Total 0.3 mg/dL (0.2-1.3); Blood Urea Nitrogen 4 mg/dL (7-17); Calcium 8.3 mg/dL (8.4-10.2); Carbon Dioxide 22 mmol/L (22-30); Chloride 106 mmol/L (98-107); Estimated CRCL calculation 157 ml/min; Estimated Glomerular Filt Rate > 60; Glucose 161 mg/dL (65-110); Potassium 3.4 mmol/L (3.4-5.0); Sodium 134 mmol/L (137-145)
--- NOTE | 2023-05-05 11:28 | P.PNOB_ITS ---
OB - Triage/Final Diagnosis Visit Information Date of evaluation: 04/25/23 Reason for evaluation: other (kidney stone) Comments/Additional reasons for admission: I have assessed the risk for this patient, Rebeca Gomes, and determined that she would benefit from observation care. Evaluation Laboratory results: Laboratory Tests 04/25/23 04/25/23 04/25/23 01:27 02:55 12:02 WBC 15.1 H RBC 3.59 L Hgb 10.7 L Hct 33.0 L MCV 91.9 MCH 29.8 MCHC 32.4 RDW 13.1 Plt Count 250 MPV 10.9 H Sodium 129 L 134 L Potassium 3.2 L 3.4 Chloride 104 106 Carbon Dioxide 20 L 22 Anion Gap 5 L 6 L BUN 6 L 4 L Creatinine 0.50 L 0.50 L Estim Creat Clear Calc 157 157 Estimated GFR > 60 > 60 Glucose 104 161 H Calcium 8.2 L 8.3 L Total Bilirubin 0.3 0.3 AST 28 25 ALT 23 23 Alkaline Phosphatase 135 H 126 Total Protein 7.0 6.0 L Albumin 3.3 L 3.0 L Urine Color Dark yellow Urine Appearance Cloudy H Urine pH 5.5 Ur Specific [place] 1.023 Urine Protein Trace Urine Glucose (UA) Negative Urine Ketones Trace H Ur Blood (Man) 3+ H Urine Nitrate Negative Urine Bilirubin Negative Urine Urobilinogen 1.0 Leukocyte Esterase Rfl Trace H Urine RBC >100 H Urine WBC 11-20 H Ur Squamous Epith Cells Few Urine Bacteria 1+ H Urine Casts 0-2 Comments: Pt evaluated on unit by RN. Plan of care discussed with CNM. FHTs reassuring. VSS. No evidence of active labor or ROM. Final Diagnosis (1) Kidney stone complicating : Qualifiers: Trimester: third trimester Qualified Code(s): O26.833 - related renal disease, third trimester; N20.0 - Calculus of kidney Code(s): O26.839 - related renal disease, unspecified trimester; N20.0 - Calculus of kidney Status: Acute
== END 2023-04-25 13:26 | disposition home or self-care (01) ==
PROVIDERS: Admitting Provider Advanced Practice Midwife; PCP Family Medicine; Visit Provider Advanced Practice Midwife
DX: O26.893 Other specified pregnancy related conditions, third trimester (principal); R10.9 Unspecified abdominal pain; M54.9 Dorsalgia, unspecified; O26.43 Herpes gestationis, third trimester; O99.283 Endocrine, nutritional and metabolic diseases complicating pregnancy, third trimester; E87.6 Hypokalemia; O23.43 Unspecified infection of urinary tract in pregnancy, third trimester; R31.9 Hematuria, unspecified; Z3A.29 29 weeks gestation of pregnancy; Z87.51 Personal history of pre-term labor; Z79.82 Long term (current) use of aspirin; Z79.899 Other long term (current) drug therapy
CPT/HCPCS: 36415; 76775; 76815; 76819; 80053; 81001; 85027; 87086; 87088; 96374; 96375; 96376; A9270; G0378; G0379; J0690; J2405; J3010; J3480; J7040; J7120

== ENCOUNTER 2023-05-25 10:39 | Outpatient (CLI) | payer BC, SELFPAY ==
[2023-05-25] VITALS (9 sets, daily range): BP systolic 114–125; BP diastolic 73–78; PULSE 88–104
--- NOTE | ~2023-05-25 | US_ITS ---
. EXAMINATION: US OB BPP wo non-stress DATE: 05/25/2023 12:44 INDICATION: Nonreactive nonstress test. Third trimester. TECHNIQUE: Real-time pelvic ultrasound was performed. COMPARISON: Ultrasound 05/20/2023 FINDINGS: There is a single living fetus in vertex presentation. The placenta is anterior. heart rate is 149 beats per minute (bpm). Biophysical profile performed by the technologist: breathing (30 sec sustained breathing in 30 minutes): 2 out of 2 movement (3 gross body movements in 30 minutes): 2 out of 2 tone (one episode of geurzwc-klymvlgfw-vovtkoj limb movement): 2 out of 2 Amniotic fluid pocket (2 cm): 2 out of 2 Total score: 8 out of 8 IMPRESSION: 1. Single living fetus in vertex presentation. 2. Biophysical profile 8 out of 8. Reviewed, dictated and finalized at location A.
[2023-05-25 11:27] LABS: Basophils Percent Auto 0.2 % (0.2-1.2); Eosinophils Absolute Auto 0.1 K/mm3 (0-0.3); Eosinophils Percent Auto 0.7 % (0-4.4); Hematocrit 31.6 % (37.0-47.0); Hemoglobin 10.2 g/dL (12.0-15.0); Immature Granulocyte Percent A 0.8 % (0-0.5); Lymphocytes Absolute Auto 1.56 K/mm3 (0.9-3.2); Lymphocytes Percent Auto 13.1 % (18.3-44.2); Mean Corpuscular HGB Conc 32.3 g/dl (32-36); Mean Corpuscular Hemoglobin 28.3 pg (26-34); Mean Corpuscular Volume 87.5 fl (80-100); Mean Platelet Volume 10.7 fl (7.4-10.4); Monocytes Absolute Auto 0.7 K/mm3 (0.1-0.6); Monocytes Percent Auto 5.6 % (2.6-8.5); Neutrophils Absolute Auto 9.5 K/mm3 (1.3-6.7); Neutrophils Percent Auto 79.6 % (45.5-73.1); Platelet Count Result 240 k/mm3 (150-375); Red Blood Count 3.61 M/mm3 (4.2-5.4); Red Cell Distribution Width 13.2 % (11.5-14.5); White Blood Count 11.9 K/mm3 (4.5-10.0)
[2023-05-25 11:38] LABS: Alanine Aminotransferase 25 U/L (6-35); Albumin Level 3.3 g/dL (3.5-5.1); Alkaline Phosphatase 162 U/L (38-126); Anion Gap 10 mmol/L (8-16); Aspartate Amino Transferase 25 U/L (14-36); Bilirubin,Total 0.3 mg/dL (0.2-1.3); Blood Urea Nitrogen 3 mg/dL (7-17); Calcium 8.6 mg/dL (8.4-10.2); Carbon Dioxide 19 mmol/L (22-30); Chloride 107 mmol/L (98-107); Estimated Glomerular Filt Rate > 60; Glucose 112 mg/dL (65-110); Sodium 136 mmol/L (137-145)
[2023-05-25 11:49] LABS: Creatinine Urine 120.3 mg/dL; Total Protein Urine Random 21 mg/dL; Ur Ttl Prot Creatinine Ratio 0.17 mg/mg (0-0.20)
[2023-05-25 12:03] LABS: Appearance Urine Cloudy (Clear); Bacteria Urine 2+ /hpf; Bilirubin Urine Negative (Negative); Blood Urine Negative (Negative); Calcium Oxalate Crystals Urine Present /hpf; Color Urine Yellow (Yellow); Glucose Urine UA Negative (Negative); Ketones Urine Negative (Negative); Leukocyte Esterase Ur 1+ LEU/UL (NEGATIVE); Nitrate Urine Negative (Negative); Non Pathogenic Casts 0-2; Protein Urine Negative (Negative); Specific Grav Ur 1.018 (1.001-1.035); Squamous Epithelial Cell Urine Few /hpf (Few); pH Urine 6.5 (5.0-9.0)
[2023-05-25 12:05] LABS: Add Urine Microscopic? YES
--- NOTE | 2023-05-25 13:19 | PC.NURSE ---
Dalia MENDOZAM notified of lab results, BP's and non reactive NST prior to BPP and a reactive tracing after BPP. BPP 04/06. Ok to dc home, have patient complete 24 hour urine and start taking Iron 325mg BID.
== END 2023-05-25 13:45 | disposition home or self-care (01) ==
LOC: ANHOBOP 10:43 → ANHOBPP 10:43
PROVIDERS: PCP Family Medicine; Visit Provider Advanced Practice Midwife
DX: O13.9 Gestational [pregnancy-induced] hypertension without significant proteinuria, unspecified trimester (principal); Z3A.00 Weeks of gestation of pregnancy not specified
CPT/HCPCS: 36415; 59025; 76819; 80053; 81001; 82570; 84156; 84550; 85025; 87086; 99199

== ENCOUNTER 2023-05-26 12:53 | Outpatient (CLI) | payer BC, SELFPAY ==
[2023-05-26 12:53] VITALS: BMI 44.9
[2023-05-26 13:16] LABS: Collection Time Urine 24 HOURS; Total Volume 24 Hour Urine 1500 ml
[2023-05-26 13:17] LABS: Patient Weight 230 Lbs
[2023-05-26 13:28] LABS: Total Protein Urine 24 Hr 240 mg/24hr (28-141); Total Protein Urine Random 16 mg/dL
[2023-05-26 13:31] LABS: Creatinine Clearance Urine 163.6 ml/min (75-125); Creatinine Urine 89.6 mg/dL
== END 2023-05-26 12:54 | disposition home or self-care (01) ==
LOC: ANHOBOP 12:58
PROVIDERS: Advanced Practice Midwife; PCP Family Medicine; Visit Provider Obstetrics & Gynecology Gynecology
DX: O26.899 Other specified pregnancy related conditions, unspecified trimester (principal); R03.0 Elevated blood-pressure reading, without diagnosis of hypertension
CPT/HCPCS: 81050; 82575; 84156

== ENCOUNTER 2023-06-06 02:36 | Observation (INO) | payer BC, SELFPAY ==
[2023-06-06 03:28] VITALS: BP 117/68; PULSE 89
[2023-06-06 04:03] VITALS: BMI 44.7
--- NOTE | 2023-06-06 04:04 | OBADM ---
This patient, Rebeca Gomes, admitted to the OB room Labor/Delivery/Recovery 106 for observation. Patient/family oriented to hospital policies and general routines including ID bracelet, bed and alarms, visiting hours, pain management, procedures, bathroom and other care routines, personal items, smoking policy, room service/diet, and visiting hours. Patient/Family are encouraged to report perceived risks to care and to ask questions if they do not understand what they are told or what they should do.
--- NOTE | 2023-06-07 09:04 | PM.OBTRLD ---
OB - Triage/Final Diagnosis Visit Information Comments/Additional reasons for admission: I have assessed the risk for this patient, Rebeca Gomes, and determined that she would benefit from observation care. Final Diagnosis (1) Vaginal discharge during : Code(s): O26.899 - Other specified related conditions, unspecified trimester; N89.8 - Other specified noninflammatory disorders of vagina Status: Acute
== END 2023-06-06 04:15 | disposition home or self-care (01) ==
PROVIDERS: Admitting Provider Obstetrics & Gynecology; PCP Family Medicine; Visit Provider Obstetrics & Gynecology
DX: O26.893 Other specified pregnancy related conditions, third trimester (principal); N89.8 Other specified noninflammatory disorders of vagina; Z3A.35 35 weeks gestation of pregnancy
CPT/HCPCS: 84112; G0378; G0379

== ENCOUNTER 2023-06-12 12:30 | Observation (INO) | payer BC, SELFPAY ==
[2023-06-12 17:31] VITALS: BMI 44.9
--- NOTE | 2023-06-12 17:33 | OBADM ---
This patient, Rebeca Gomes, admitted to the OB room 116 for observation. Patient/family oriented to hospital policies and general routines including ID bracelet, bed and alarms, visiting hours, pain management, procedures, bathroom and other care routines, personal items, smoking policy, room service/diet, and visiting hours. Patient/Family are encouraged to report perceived risks to care and to ask questions if they do not understand what they are told or what they should do.
[2023-06-12 17:57] VITALS: BP 130/77; PULSE 90; RESP 18; TEMP 37.1
[2023-06-12 18:24] VITALS: RESP 16; TEMP 36.7
--- NOTE | 2023-06-12 19:05 | PC.NURSE ---
Updated Dr. Beltre of FHT. Active movement reported by patient, noted visually and audibly and palpated. FHT tracing intermittent at periods r/t increased movements. Patient requests to go home and come back in the morning for her repeated BPP and NST. Discharge orders received.
--- NOTE | 2023-06-12 19:34 | PC.NURSE ---
Discharge instructions reviewed with patient. Patient educated on labor precautions and educational handout provided. Patient educated on kick counts and educational handout provided. Patient states understanding of all discharge education. Patient instructed to follow up tomorrow 06/13/2023 at 0930 for repeated NST and BPP. Patient states understanding.
--- NOTE | 2023-06-14 13:47 | PM.OBTRLD ---
OB - Triage/Final Diagnosis Visit Information Date of evaluation: 06/12/23 Reason for evaluation: decreased movement Comments/Additional reasons for admission: I have assessed the risk for this patient, Rebecapalomo Gomes, and determined that she would benefit from observation care.
== END 2023-06-12 19:35 | disposition home or self-care (01) ==
PROVIDERS: Admitting Provider Student in an Organized Health Care Education/Training Program; PCP Family Medicine; Visit Provider Student in an Organized Health Care Education/Training Program
DX: O36.8130 Decreased fetal movements, third trimester, not applicable or unspecified (principal); Z3A.36 36 weeks gestation of pregnancy
CPT/HCPCS: G0378; G0379

== ENCOUNTER 2023-06-17 14:32 | Outpatient (CLI) | payer BC, SELFPAY ==
[2023-06-17 14:49] VITALS: BMI 46.2
[2023-06-17] MEDS: BETAMETHASONE SOD PHOS/ACETATE 30 MG/5 ML VIAL 12 MG IM (15:08)
--- NOTE | 2023-06-17 15:20 | PC.NURSE ---
Dalia IRVIN updated with pt blood pressure. Pt reports having spotty vision. CNM aware. Pt completed 24hour urine. CNM aware and will look for results in the AM. Orders received for pt to go home.
[2023-06-17 17:17] LABS: Collection Time Urine 24 HOURS
[2023-06-17 17:19] LABS: Patient Weight 236 Lbs; Total Volume 24 Hour Urine 2450 ml
[2023-06-17 17:34] LABS: Creatinine Clearance Urine 182.6 ml/min (75-125); Creatinine Urine 61.9 mg/dL; Total Protein Urine 24 Hr 392 mg/24hr (28-141); Total Protein Urine Random 16 mg/dL
== END 2023-06-17 15:20 | disposition home or self-care (01) ==
LOC: ANHOBOP 14:43
PROVIDERS: PCP Family Medicine; Visit Provider Advanced Practice Midwife
DX: O13.9 Gestational [pregnancy-induced] hypertension without significant proteinuria, unspecified trimester (principal)
CPT/HCPCS: 81050; 82575; 84156; 96372; J0702

== ENCOUNTER 2023-06-18 10:37 | Outpatient (RCR) | payer BC, SELFPAY ==
[2023-05-17 13:21] VITALS: BP 126/69; PULSE 112
[2023-05-20 18:08] VITALS: BP 111/71; PULSE 100
[2023-05-28 15:00] LABS: Hematocrit 33.2 % (37.0-47.0); Hemoglobin 10.8 g/dL (12.0-15.0); Mean Corpuscular HGB Conc 32.5 g/dl (32-36); Mean Corpuscular Hemoglobin 28.2 pg (26-34); Mean Corpuscular Volume 86.7 fl (80-100); Mean Platelet Volume 10.8 fl (7.4-10.4); Platelet Count Result 282 k/mm3 (150-375); Red Blood Count 3.83 M/mm3 (4.2-5.4); Red Cell Distribution Width 13.3 % (11.5-14.5); White Blood Count 13.6 K/mm3 (4.5-10.0)
[2023-05-28 15:46] LABS: Alanine Aminotransferase 22 U/L (6-35); Albumin Level 3.6 g/dL (3.5-5.1); Alkaline Phosphatase 184 U/L (38-126); Anion Gap 9 mmol/L (8-16); Aspartate Amino Transferase 25 U/L (14-36); Bilirubin,Total 0.4 mg/dL (0.2-1.3); Blood Urea Nitrogen 3 mg/dL (7-17); Calcium 8.6 mg/dL (8.4-10.2); Carbon Dioxide 18 mmol/L (22-30); Chloride 108 mmol/L (98-107); Estimated Glomerular Filt Rate > 60; Glucose 132 mg/dL (65-110); Potassium 3.2 mmol/L (3.4-5.0); Sodium 135 mmol/L (137-145); Uric Acid 3.2 mg/dL (2.5-7.5)
[2023-05-28 16:12] VITALS: BP 131/73; PULSE 86
[2023-06-01 17:02] VITALS: BP 115/69; PULSE 112
[2023-06-04 16:01] VITALS: BP 108/65; PULSE 115
[2023-06-04 16:20] VITALS: BP 108/65; PULSE 115
[2023-06-08 11:04] VITALS: BP 127/78; PULSE 101
[2023-06-13 12:39] VITALS: BP 133/83
[2023-06-16 12:22] LABS: Creatinine Urine 58.3 mg/dL; Total Protein Urine Random 28 mg/dL; Ur Ttl Prot Creatinine Ratio 0.48 mg/mg (0-0.20)
[2023-06-16 12:54] LABS: Basophils Percent Auto 0.3 % (0.2-1.2); Eosinophils Absolute Auto 0.1 K/mm3 (0-0.3); Eosinophils Percent Auto 0.6 % (0-4.4); Hematocrit 33.5 % (37.0-47.0); Hemoglobin 10.4 g/dL (12.0-15.0); Immature Granulocyte Absolute 0.11 K/mm3 (0.00-0.031); Lymphocytes Absolute Auto 1.46 K/mm3 (0.9-3.2); Lymphocytes Percent Auto 12.7 % (18.3-44.2); Mean Corpuscular Hemoglobin 26.8 pg (26-34); Mean Corpuscular Volume 86.3 fl (80-100); Mean Platelet Volume 11.2 fl (7.4-10.4); Monocytes Absolute Auto 0.7 K/mm3 (0.1-0.6); Monocytes Percent Auto 5.8 % (2.6-8.5); Neutrophils Absolute Auto 9.1 K/mm3 (1.3-6.7); Neutrophils Percent Auto 79.6 % (45.5-73.1); Nucleated Red Blood Cells Perc 0.2 % (0.0-0.2); Platelet Count Result 244 k/mm3 (150-375); Red Blood Count 3.88 M/mm3 (4.2-5.4); White Blood Count 11.5 K/mm3 (4.5-10.0)
[2023-06-16 13:06] LABS: Alanine Aminotransferase 23 U/L (6-35); Albumin Level 3.3 g/dL (3.5-5.1); Alkaline Phosphatase 212 U/L (38-126); Anion Gap 6 mmol/L (8-16); Aspartate Amino Transferase 28 U/L (14-36); Bilirubin,Total 0.4 mg/dL (0.2-1.3); Blood Urea Nitrogen 4 mg/dL (7-17); Calcium 8.7 mg/dL (8.4-10.2); Carbon Dioxide 22 mmol/L (22-30); Chloride 106 mmol/L (98-107); Estimated Glomerular Filt Rate > 60; Glucose 95 mg/dL (65-110); Potassium 3.3 mmol/L (3.4-5.0); Sodium 134 mmol/L (137-145)
[2023-06-16] MEDS: BETAMETHASONE SOD PHOS/ACETATE 30 MG/5 ML VIAL 12 MG IM (14:00)
[2023-06-16 14:40] VITALS: BP 128/76; PULSE 83
--- NOTE | ~2023-06-18 | US_ITS ---
US OB BPP wo non-stress DATE: 05/20/2023 17:55 INDICATION: Nonreactive stress test. Gestational hypertension. TECHNIQUE: Real-time imaging and Doppler analysis COMPARISON: 04/25/2023 Limited obstetrical ultrasound with normal biophysical profile FINDINGS: Live cool intrauterine gestation, fetus in longitudinal lie, vertex presentation. Ante rior placenta without evidence of encroachment upon the internal os. heart rate of 140 bpm. Amniotic fluid index measures 15.3 cm, within normal range. (5th percentile SARAI: 8.6 cm; 95th percent ile SARAI: 24.2 cm). BIOPHYSICAL PROFILE reported by lubrication technician: breathin out of 2 movement: 2 out of 2 tone: 2 out of 2 Amniotic fluid pocket: 2 out of 2 Total score: 8 out of 8 IMPRESSION: Normal biophysical profile score of 8 out of a Reviewed, dictated and finalized at [facility]. Reviewed, dictated and finalized at location A.
--- NOTE | ~2023-06-18 | US_ITS ---
EXAMINATION: US OB BPP wo non-stress DATE: 06/12/2023 16:52 INDICATION: Gestational hypertension and nonreactive nonstress test TECHNIQUE: Real-time pelvic ultrasound was performed. The interpreting radiologist was not present fo r the study. COMPARISON: None. FINDINGS: There is a single living fetus in vertex presentation. The placenta is anterior. heart rate is 143 beats per minute (bpm). Biophysical profile performed by the technologist: breathing (30 sec sustained breathing in 30 minutes): 0 out of 2 movement (3 gross body movements in 30 minutes): 2 out of 2 tone (one episode of ikxjrwt-qbnmgwmtu-kglmrcw limb movement): 2 out of 2 Amniotic fluid pocket (2 cm): 2 out of 2 Total score: 6 out of 8 IMPRESSION: 1. Single living fetus in vertex presentation with heart rate of 143 bpm. 2. Biophysical profile 6 out of 8. Reviewed, dictated and finalized at location A.
--- NOTE | ~2023-06-18 | US_ITS ---
EXAMINATION: US OB limited w BPP DATE: 06/13/2023 12:18 INDICATION: Nonreactive nonstress test. Third trimester. TECHNIQUE: Real-time pelvic ultrasound was performed. COMPARISON: Ultrasound 06/12/2023 FINDINGS: There is a single living fetus in vertex presentation. The placenta is anterior. heart rate is 142 beats per minute (bpm). Biophysical profile performed by the technologist: breathing (30 sec sustained breathing in 30 minutes): 2 out of 2 movement (3 gross body movements in 30 minutes): 2 out of 2 tone (one episode of hnhqekt-vrrdxpluh-yuovopv limb movement): 2 out of 2 Amniotic fluid pocket (2 cm): 2 out of 2 Total score: 8 out of 8 IMPRESSION: 1. Single living fetus in vertex presentation. 2. Biophysical profile 8 out of 8. Reviewed, dictated and finalized at location A.
--- NOTE | ~2023-06-18 | US_ITS ---
EXAMINATION: US OB follow up w BPP, US OB velocimetry umbilical art DATE: 06/16/2023 12:39 INDICATION: Gestational hypertension and diabetes during third trimester . TECHNIQUE: Real-time pelvic ultrasound was performed utilizing transabdominal probe. The interpreting radiologist was not present for the study. COMPARISON: None. FINDINGS: There is a single living fetus in vertex presentation. The placenta is anterior. heart rate is 139 beats per minute (bpm). Normal amniotic fluid index of 18.3 cm (5th%-95%: 7.7-34.9 cm at 36 week s estimated gestational age) Biophysical profile performed by the technologist: breathing (30 sec sustained breathing in 30 minutes): 2 out of 2 movement (3 gross body movements in 30 minutes): 2 out of 2 tone (one episode of uykcmpg-zwfvzoxas-jgeuswt limb movement): 2 out of 2 Amniotic fluid pocket (2 cm): 2 out of 2 Total score: 8 out of 8 The umbilical artery demonstrates a peak systolic and diastolic velocity ratio of 2.1 at the fetus, 2 .3 in the mid cord and 2.1 near the placenta (5th%-95%: 1.98-3.29 at 36 weeks). IMPRESSION: 1. Single living fetus in vertex presentation with heart rate of 139 bpm. 2. Biophysical profile 8 out of 8. 3. Normal amniotic fluid index of 18.3 cm. 4. Normal umbilical artery peak systolic to diastolic ratios of 2.1-2.3. Reviewed, dictated and finalized at location A. IMPRESSION: 1. Single living fetus in vertex presentation with heart rate of 139 bpm. 2. Biophysical profile 8 out of 8. 3. Normal amniotic fluid index of 18.3 cm. 4. Normal umbilical artery peak systolic to diastolic ratios of 2.1-2.3.
--- NOTE | ~2023-06-18 | US_ITS ---
EXAMINATION: US OB BPP wo non-stress DATE: 06/01/2023 16:32 INDICATION: Nonreactive nonstress test. Third trimester. TECHNIQUE: Real-time pelvic ultrasound was performed. COMPARISON: Ultrasound 05/25/2023 FINDINGS: There is a single living fetus in vertex presentation. The placenta is anterior. heart rate is 145 beats per minute (bpm). Biophysical profile performed by the technologist: breathing (30 sec sustained breathing in 30 minutes): 2 out of 2 movement (3 gross body movements in 30 minutes): 2 out of 2 tone (one episode of caupvgc-mkjrahnyz-pxtznpl limb movement): 2 out of 2 Amniotic fluid pocket (2 cm): 2 out of 2 Total score: 8 out of 8 IMPRESSION: 1. Single living fetus in vertex presentation. 2. Biophysical profile 8 out of 8. Reviewed, dictated and finalized at location E.
[2023-06-18 12:30] VITALS: BP 141/78; PULSE 83
== END 2023-07-15 11:29 | disposition home or self-care (01) ==
LOC: ANHOBOP 10:37
PROVIDERS: Advanced Practice Midwife; PCP Family Medicine; Visit Provider Obstetrics & Gynecology Gynecology
DX: O16.3 Unspecified maternal hypertension, third trimester (principal); O26.893 Other specified pregnancy related conditions, third trimester; Z3A.32 32 weeks gestation of pregnancy; Z3A.33 33 weeks gestation of pregnancy; Z3A.34 34 weeks gestation of pregnancy; Z3A.35 35 weeks gestation of pregnancy; Z3A.36 36 weeks gestation of pregnancy
CPT/HCPCS: 36415; 59025; 76815; 76816; 76819; 76820; 80053; 82570; 84156; 84550; 85025; 85027; 96372; J0702

== ENCOUNTER 2023-06-18 10:37 | Outpatient (CLI) | payer BC, SELFPAY ==
[2023-06-18 11:30] VITALS: BP 125/71; PULSE 102
[2023-06-18 12:00] VITALS: BP 128/77; PULSE 98
[2023-06-18 12:30] VITALS: BP 133/66; PULSE 97
[2023-06-18] MEDS: IRON SUCROSE COMPLEX 500 MG in SODIUM CHLORIDE 0.9% IV 250 ML 78.57 MG IVPB (13:07)
[2023-06-18] MEDS: POTASSIUM CHLORIDE 20 MEQ PACKET (FOR LIQUID) 40 MEQ PO (13:08)
== END 2023-06-18 15:45 | disposition home or self-care (01) ==
LOC: ANHOBOP 10:46 → ANHOBPP 10:48
PROVIDERS: PCP Family Medicine; Visit Provider Advanced Practice Midwife
DX: O99.019 Anemia complicating pregnancy, unspecified trimester (principal)
CPT/HCPCS: 99199; A9270; J1756; J7050

== ENCOUNTER 2023-06-20 16:59 | Inpatient (IN) | payer BC, SELFPAY ==
[2023-06-20] VITALS (12 sets, daily range): BP systolic 114–127; BP diastolic 61–77; PULSE 82–104; TEMP 36.2–36.7; BMI 46.2
--- NOTE | 2023-06-20 17:35 | LDADM ---
This patient, Rebeca Gomes, was admitted to Labor/Delivery/Recovery 103 on 06/20/23 at 16:59. Plans for labor, pain management and were discussed with patient. Patient/family oriented to hospital policies and general routines including ID bracelet, bed and alarms, visiting hours, pain management, procedures, bathroom and other care routines, personal items, smoking policy, room service/diet and guest tray routines, security routines, and visiting hours. Patient/Family are encouraged to report perceived risks to care and to ask questions if they do not understand what they are told or what they should do. See OBIX for further documentation.
[2023-06-20 18:15] LABS: Basophils Percent Auto 0.2 % (0.2-1.2); Eosinophils Percent Auto 0.3 % (0-4.4); Hematocrit 32.8 % (37.0-47.0); Hemoglobin 10.1 g/dL (12.0-15.0); Immature Granulocyte Absolute 0.16 K/mm3 (0.00-0.031); Immature Granulocyte Percent A 1.2 % (0-0.5); Lymphocytes Absolute Auto 1.65 K/mm3 (0.9-3.2); Lymphocytes Percent Auto 12.5 % (18.3-44.2); Mean Corpuscular HGB Conc 30.8 g/dl (32-36); Mean Corpuscular Hemoglobin 27.2 pg (26-34); Mean Corpuscular Volume 88.2 fl (80-100); Monocytes Percent Auto 7.3 % (2.6-8.5); Neutrophils Absolute Auto 10.4 K/mm3 (1.3-6.7); Neutrophils Percent Auto 78.5 % (45.5-73.1); Nucleated Red Blood Cells Absolute Auto 0.1 K/mm3 (0.0-0.012); Nucleated Red Blood Cells Perc 1.1 % (0.0-0.2); Platelet Count Result 270 k/mm3 (150-375); Red Blood Count 3.72 M/mm3 (4.2-5.4); White Blood Count 13.2 K/mm3 (4.5-10.0)
[2023-06-20 18:33] LABS: Alanine Aminotransferase 22 U/L (6-35); Albumin Level 3.3 g/dL (3.5-5.1); Alkaline Phosphatase 209 U/L (38-126); Anion Gap 7 mmol/L (8-16); Aspartate Amino Transferase 27 U/L (14-36); Bilirubin,Total 0.3 mg/dL (0.2-1.3); Blood Urea Nitrogen 3 mg/dL (7-17); Calcium 8.8 mg/dL (8.4-10.2); Carbon Dioxide 20 mmol/L (22-30); Chloride 109 mmol/L (98-107); Estimated CRCL calculation 193 ml/min; Estimated Glomerular Filt Rate > 60; Glucose 117 mg/dL (65-110); Potassium 3.1 mmol/L (3.4-5.0); Sodium 136 mmol/L (137-145); Uric Acid 3.5 mg/dL (2.5-7.5)
[2023-06-20] MEDS: miSOPROStol 25 MCG TABLET PO ×2 (18:55→22:54)
[2023-06-21] VITALS (93 sets, daily range): BP systolic 87–151; BP diastolic 43–91; PULSE 69–134; RESP 16–18; TEMP 36.3–36.9; O2SAT 79–100
[2023-06-21] MEDS: LACTATED RINGERS 1,000 ML 125 ML IV CONT ×2 (03:06→08:28)
[2023-06-21] MEDS: OXYTOCIN 30 UNITS/NS 500 ML 30 UNITS/500 ML BAG IV CONT (03:22)
[2023-06-21] MEDS: FAMOTIDINE 20 MG/2 ML VIAL IV PUSH (06:05)
--- NOTE | 2023-06-21 06:29 | WPDANESEPP ---
Anes - Eval Pre Procedure Procedure: labor epidural Date/Time: 06/21/23 06:29 Surgeon: tong Preop Diagnosis: pain during labor Pre Op Diagnosis: IOL Patient Data Age: 27 Gender: F Height: 1.52 m Weight: 107.3 kg Last Vital Signs Temp 36.6 C 06/21/23 06:23 Pulse 84 06/21/23 06:01 BP 94/48 L 06/21/23 06:01 Allergies Allergy/AdvReac Type Severity Reaction Status Date / Time vancomycin Allergy Severe RED MAN Verified 06/12/23 12:56 SYNDROME azithromycin AdvReac Mild Vomiting Verified 06/20/23 17:28 nitrofurantoin AdvReac Mild VOMITING Verified 06/20/23 17:28 sulfamethoxazole AdvReac Mild VOMITING Verified 06/20/23 17:28 Penicillins AdvReac Unknown YOUNG, Verified 06/12/23 12:56 DON'T KNOW EXACTLY WHAT HAPPENED trimethoprim AdvReac Unknown VOMITING Verified 06/12/23 12:56 Home Medications Medication Instructions Recorded Confirmed Type valacyclovir 500 mg tablet 500 mg PO DAILY 07/31/19 06/20/23 History (Valtrex) omeprazole 20 mg capsule,delayed 40 mg PO DAILY 09/01/21 06/20/23 History release aspirin 81 mg tablet 81 mg PO DAILY 02/23/23 06/20/23 History bupropion HCl 150 mg 24 hr tablet, 150 mg PO DAILY 02/23/23 06/20/23 History extended release nifedipine 30 mg tablet,extended 30 mg PO DAILY 06/04/23 06/20/23 History release 24 hr (Procardia XL) cholecalciferol (vitamin D3) 1,250 1,250 mcg PO WEEKLY 06/12/23 06/12/23 History mcg (50,000 unit) tablet ferrous sulfate 325 mg (65 mg 325 mg PO BID 06/12/23 06/20/23 History iron) tablet vit no.95-ferrous 1 tablet PO DAILY 06/12/23 06/20/23 History fumarate 28 mg-folic acid 800 mcg tablet () sertraline 100 mg tablet 200 mg PO DAILY 06/12/23 06/20/23 History Laboratory Tests 06/20/23 06/20/23 06/20/23 17:49 18:02 18:02 WBC RBC Hgb Hct MCV MCH MCHC RDW Plt Count MPV Immature Gran % (Auto) Neut % (Auto) Lymph % (Auto) [place] % (Auto) Eos % (Auto) Baso % (Auto) Lymph # (Auto) [place] # (Auto) Eos # (Auto) Baso # (Auto) Abs Immat Gran (auto) Absolute Neuts (auto) Absolute Nucleated RBC Nucleated RBC % Sodium 136 L mmol/L (137-145) Potassium 3.1 L mmol/L (3.4-5.0) Chloride 109 H mmol/L (98-107) Carbon Dioxide 20 L mmol/L (22-30) Anion Gap 7 L mmol/L (8-16) BUN 3 L mg/dL (7-17) Creatinine 0.40 L mg/dL (0.7-1.0) Estim Creat Clear Calc 193 ml/min Estimated GFR > 60 (59 - ) Glucose 117 H mg/dL (65-110) Uric Acid Cancelled 3.5 mg/dL (2.5-7.5) Calcium 8.8 mg/dL (8.4-10.2) Total Bilirubin 0.3 mg/dL (0.2-1.3) AST 27 U/L (14-36) ALT 22 U/L (6-35) Alkaline Phosphatase 209 H U/L (38-126) Total Protein 6.0 L g/dL (6.3-8.2) Albumin 3.3 L g/dL (3.5-5.1) RPR Pending Blood Type A Negative Antibody Screen Positive Antibody Identification Passive Due to RH Imm Glob Antigen Identification Cancelled PEPPER, IgG Interpret Not Performed PEPPER, Poly Interpret Negative PEPPER, Complement Interp Not Performed 06/20/23 18:08 WBC 13.2 H K/mm3 (4.5-10.0) RBC 3.72 L M/mm3 (4.2-5.4) Hgb 10.1 L g/dL (12.0-15.0) Hct 32.8 L % (37.0-47.0) MCV 88.2 fl (80-100) MCH 27.2 pg (26-34) MCHC 30.8 L g/dl (32-36) RDW 16.0 H % (11.5-14.5) Plt Count 270 k/mm3 (150-375) MPV 11.0 H fl (7.4-10.4) Immature Gran % (Auto) 1.2 H % (0-0.5) Neut % (Auto) 78.5 H
[2023-06-21] MEDS: POTASSIUM CHLORIDE INJ 40 MEQ in SODIUM CHLORIDE 0.9% IV 500 ML 130 MEQ IVPB ×2 (06:45→20:38)
--- NOTE | 2023-06-21 07:38 | WPDOBADMIT ---
Obstetrics - Admit Note Admission Note: record reviewed. No pertinent additions to the history and/or any subsequent changes in the physical findings that are not consistent with the expected course of the were found. Additions to the history and/or subsequent changes in the physical findings follow. Pt undergoing IOL due to preeclampsia.
--- NOTE | 2023-06-21 07:38 | PM.OBPNLAB ---
Pain Control Date/time seen: 06/21/23 07:30 Pain control: tolerating well Comments: Called at 0535 by RN for update. K noted to be 3.1 on admission CMP. Potassium 40mEq ordered IVPB. Continue pitocin. Discussed CNM will see pt this am. Presently, Rebeca is feeling occasional cramping in her back. Partner at bedside and he is supportive. Pelvic Exam Dilation (cm): 3 Effacement (%): 80 station: -2 Amniotic membrane status: Intact Comments: head well applied to the cervix. Contractions Monitor mode: External Contraction pattern: Irregular (RN unable to trace ctx via toco. ) Status status: Category l Comments: Baseline 135. +accelerations Assessment and Plan Pitocin rate (mU/min): 10 Assessment: induction ongoing Comments: CNM to bedside. Discussed plan of care an option for amniotomy and IUPC placement. Discussed risks, benefits, and expectations of breaking water. Patient is agreeable. Amniotomy performed and there was a small return of clear amniotic fluid. IUPC inserted easily and filled with clear amniotic fluid. Patient tolerated procedure well. Plan for RN to titrate pitocin as needed to achieve adequate contraction pattern. Anticipate vaginal . Dr. Seymour updated.
[2023-06-21] MEDS: fentaNYL CITRATE INJ (*CRX) 100 MCG/2 ML VIAL IV PUSH (08:24)
--- NOTE | 2023-06-21 10:27 | PM.OBPNLAB ---
Pain Control Date/time seen: 06/21/23 10:15 Pain control: tolerating well and epidural Comments: pushing with contractions Pelvic Exam Dilation (cm): 10 Effacement (%): 100 station: +2 Contractions Monitor mode: External Contraction frequency: 3 Contraction pattern: Regular (RN unable to trace ctx via toco. ) Contraction intensity: Strong/Firm Status status: Category ll Assessment and Plan Pitocin rate (mU/min): 2 Comments: pushing with ctx. anticipate vaginal .
--- NOTE | 2023-06-21 10:29 | PM.OBPRVD ---
OB - Delivery Note Procedure Delivery date: 06/21/23 Procedure: Events: Preeclampsia w/o severe features Induction method: Per Misoprostol Protocol and Per Pitocin Protocol Delivery augmentation: Rupture of Membranes Delivery monitor: External FHT and Internal Uterine Route of delivery: Episiotomy description: None Laceration Description: None Specimen: Yes (placenta) Quantitative Blood Loss (ml): 300 Anesthesia type: Epidural Disposition: Floor Narrative: Pt arrived for IOL due to preeclampsia. She was given buccal misoprostol x 2 doses and then received pitocin. Amniotomy was performed and she progressed quickly to complete dilation. She pushed with contractions and Brought the head to a crown. she pushed with the next contraction and delivered the entire head. There was poor restitution and the infant's face was position towards the maternal right. With the next push, there was slow but steady descent of the anterior shoulder. There was better restitution at this time and the infant's head turned to face the maternal left. The posterior shoulder followed by the remainder of the was delivered, the tight nuchal cord was reduced, and the infant was placed on the maternal abdomen. Care was transferred to the nursery staff. He was dried and stimulated. The cord was clamped and cut before 1 minute of life as requested by the pediatric team. The placenta delivered spontaneously. The vagina and perineum were inspected and no lacerations were identified. There was excellent fundal tone and hemostasis. All delivery counts correct. Baby Date of : 06/21/23 Time of : 11:03 Weeks of gestation at delivery: 37 Infant gender: Male Weight (pounds): 6 Weight (ounces): 13 presentation: vertex position: Left Occiput Anterior Placenta delivery description: Spontaneous Cord Vessel Description: 3 Vessels, Nuchal Cord, Tight and Clamped/Cut score one minute: 2 score five minutes: 7 score ten minutes: 9
--- NOTE | 2023-06-21 10:31 | PM.OBDSVD ---
DS: Admitting Diagnosis Discharge Date 06/22/2023 Admitting Diagnosis 27 y.o. at 37 weeks 1 day Preeclampsia Hx Kidney Stones DS: Discharge Diagnosis Discharge Diagnosis (1) (normal spontaneous vaginal delivery): Code(s): O80 - Encounter for full-term uncomplicated delivery Status: Acute (2) Patient is a currently breast-feeding mother: Code(s): Z39.1 - Encounter for care and examination of lactating mother Status: Acute (3) Rh negative status during : Code(s): O26.899 - Other specified related conditions, unspecified trimester; Z67.91 - Unspecified blood type, Rh negative Status: Acute Assessment and Plan: A neg. No indication for Rhogam. (4) Anxiety during : Code(s): O99.340 - Other mental disorders complicating , unspecified trimester; F41.9 - Anxiety disorder, unspecified Status: Acute (5) Depression affecting : Code(s): O99.340 - Other mental disorders complicating , unspecified trimester; F32.A - Depression, unspecified Status: Acute (6) Preeclampsia: Code(s): O14.90 - Unspecified pre-eclampsia, unspecified trimester Status: Acute (7) Hypokalemia: Code(s): E87.6 - Hypokalemia Status: Acute OB - DS: Summary Hospital Course Hospital Course: Uncomplicated OB Procedures : NST and Ultrasound OB Procedures Intrapartum: Spontaneous Vag Delivery OB Procedures: : None Peripartum Data Delivery Method: Natural Vaginal Laceration Description: None Episiotomy description: None complications: none Status at Discharge Functional status at discharge: independent ambulation Overall status at discharge: patient is progressing back to baseline Time Spent with Patient Time attestation: Total time spent providing and/or coordinating discharge services: Exam Narrative: Alert and oriented. Mood is pleasant and cooperative. Perineum with minimal edema. Fundus firm and below umbilicus. Bleeding WNL. Const: General: cooperative, healthy appearing, no acute distress and alert Orientation/consciousness: patient oriented x3 Limitations: no limitations Resp: Effort & Inspection: normal respiratory effort and able to speak in complete sentences Auscultation: clear to auscultation bilaterally Cardio: Rate: regular rate GI: Inspection: normal to inspection Auscultation: normal bowel sounds : General: Yes bladder normal to palpation Speculum Exam - Vagina: vaginal bleeding Bimanual exam- vagina & uterus: bladder normal to palpation OB/external & speculum: vaginal bleeding Other: Fundus firm and below U Skin: General skin exam: normal color and no rashes or lesions noted Neuro: General: patient oriented x3 and moves all extremities Cognition (Neuro): normal cognition Extrem: General: normal to inspection and no calf tenderness Psych: Appearance: grossly normal Mental Status: mental status grossly normal Affect: normal affect Thought process: Normal thought process present DS: Data Data Completed and Pending Labs on day of discharge: Labs from last 24 hours 06/20/23 06/20/23 06/20/23 18:08 18:02 18:02 WBC 13.2 H RBC 3.72 L Hgb 10.1 L Hct 32.8 L MCV 88.2 MCH 27.2 MCHC 30.8 L RDW 16.0 H Plt Count 270 MPV 11.0 H Immature Gran % (Auto) 1.2 H Neut % (Auto) 78.5 H Lymph % (Auto) 12.5 L Lamb % (Auto) 7.3 Eos % (Auto) 0.3 Baso % (Auto) 0.2 Lymph # (Auto) 1.65 Lamb # (Auto) 1.0 H Eos # (Auto) 0.0 Baso # (Auto) 0.0 Abs Immat Gran (auto) 0.16 H Absolute Neuts (auto) 10.4 H Absolute Nucleated RBC 0.1 H Nucleated RBC % 1.1 H Sodium 136 L Potassium 3.1 L Chloride 109 H Carbon Dioxide 20 L Anion Gap 7 L BUN 3 L Creatinine 0.40 L Estim Creat Clear Calc 193 Estimated GFR > 60 Glucose 117 H Uric Acid
[2023-06-21 11:11] LABS: Rapid Plasma Reagin Non-Reactive (NonReactive)
[2023-06-21] MEDS: OXYTOCIN 30 UNITS/NS 500 ML 30 UNITS/500 ML BAG 125 UNITS IV CONT (11:35)
[2023-06-21] MEDS: IBUPROFEN 600 MG TABLET PO (12:23)
--- NOTE | 2023-06-21 14:08 | OBPPTRN ---
1346 Patient transferred to post room #292 via W/C. Support person present. Oriented to unit, room, information board, rooming in, admission packet and security measures. Patient verbalizes understanding.
--- NOTE | 2023-06-21 15:03 | PC.NURSE ---
[id number] Introductions made and mother is in the WC getting ready to go visit her infant in the nursery.
[2023-06-21 17:28] LABS: Potassium 3.2 mmol/L (3.4-5.0)
--- NOTE | 2023-06-21 19:11 | PC.NURSE ---
1600 [facility] Transport team here. They took into Moms room. 1600 Lab work not able to be done yet. Will try again after the team leaves.
[2023-06-21] MEDS: PANTOPRAZOLE 40 MG TABLET PO (20:38)
[2023-06-22 01:02] VITALS: BP 123/71; PULSE 86; RESP 16; TEMP 37; O2SAT 99
[2023-06-22] MEDS: IBUPROFEN 600 MG TABLET PO (06:33)
[2023-06-22 06:55] LABS: Hematocrit 31.9 % (37.0-47.0); Hemoglobin 9.4 g/dL (12.0-15.0)
[2023-06-22 06:58] LABS: Potassium 3.2 mmol/L (3.4-5.0)
--- NOTE | 2023-06-22 07:47 | PM.OBPNVD ---
OB - PN: Subj Subjective Date/time seen: 06/22/23 07:35 Interval history: Sleeping upon entry. Awakened to voice. Went on a pass to visit baby in NICU overnight. Denies WOO, visual changes, RUQ pain. Edema somewhat increased. Baby doing better overnight in NICU. Urinating without difficulty. Breast pumping. Tolerating po food and fluids. Patient comments: no complaints and pain well controlled [place] baby status: NICU [place] feeding status: pumping and storing OB - PN: Obj Data Labs 06/22/23 06:39 06/22/23 06:39 Labs: Laboratory Results - last 24 hr 06/20/23 06/21/23 06/22/23 17:49 17:13 06:39 Hgb 9.4 L Hct 31.9 L Potassium 3.2 L 3.2 L RPR Non-reactive OB - PN A/P Assessment and Plan (1) (normal spontaneous vaginal delivery): Code(s): O80 - Encounter for full-term uncomplicated delivery Status: Acute (2) Preeclampsia: Qualifiers: Trimester: third trimester Qualified Code(s): O14.93 - Unspecified pre-eclampsia, third trimester Code(s): O14.90 - Unspecified pre-eclampsia, unspecified trimester Status: Acute (3) Rh negative status during : Qualifiers: Trimester: third trimester Qualified Code(s): O26.893 - Other specified related conditions, third trimester; Z67.91 - Unspecified blood type, Rh negative Code(s): O26.899 - Other specified related conditions, unspecified trimester; Z67.91 - Unspecified blood type, Rh negative Status: Acute Assessment and Plan: Baby is A neg. (4) Patient is a currently breast-feeding mother: Code(s): Z39.1 - Encounter for care and examination of lactating mother Status: Acute Assessment and Plan: Breast pumping (5) Depression affecting : Code(s): O99.340 - Other mental disorders complicating , unspecified trimester; F32.A - Depression, unspecified Status: Acute Assessment and Plan: Continue meds (6) Anxiety during : Code(s): O99.340 - Other mental disorders complicating , unspecified trimester; F41.9 - Anxiety disorder, unspecified Status: Acute Assessment and Plan: continue meds (7) Separation from at : Status: Acute Plan day: 1 Plan: discharge home Time Spent With Patient Time: Total time spent is greater than 50% in coordination of care (as documented) at patient's floor/unit and/or counseling patient: Review of Systems Review of Systems: All systems reviewed & are unremarkable except as noted in HPI and below Exam Narrative: Alert and oriented. Mood is pleasant and cooperative. Perineum with minimal edema. Fundus firm and below umbilicus. Bleeding WNL. Const: General: cooperative, healthy appearing, no acute distress and alert Orientation/consciousness: patient oriented x3 Limitations: no limitations Resp: Effort & Inspection: normal respiratory effort and able to speak in complete sentences Auscultation: clear to auscultation bilaterally Cardio: Rate: regular rate GI: Inspection: normal to inspection Auscultation: normal bowel sounds : General: Yes bladder normal to palpation Speculum Exam - Vagina: vaginal bleeding Bimanual exam- vagina & uterus: bladder normal to palpation OB/external & speculum: vaginal bleeding Other: Fundus firm and below U Skin: General skin exam: normal color and no rashes or lesions noted Neuro: General: patient oriented x3 and moves all extremities Cognition (Neuro): normal cognition Extrem: General: normal to inspection and no calf tenderness Psych: Appearance: grossly normal Mental Status: mental status grossly normal Affect: normal affect Thought process: Normal thought process present
[2023-06-22 07:55] VITALS: BP 131/67; PULSE 79; RESP 16; TEMP 36.6; O2SAT 100
--- NOTE | 2023-06-22 09:08 | WPDANLDPN2 ---
Anes-Prog Note L&D Date/Time: 06/22/23 09:08 Comfortable throughout: labor and delivery Neuraxial method: epidural Epidural/Spinal procedure site: clean & non-tender Neuro status: Neuro function grossly intact. Cardiovascular status: normal Respiratory status: normal Airway patency: baseline Mental status: baseline Post-Op hydration status: normal Vital Signs: Last Vital Signs Temp 37.0 C 06/22/23 01:02 Pulse 86 06/22/23 01:02 Resp 16 06/22/23 01:02 BP 123/71 06/22/23 01:02 Pulse Ox 99 06/22/23 01:02 O2 Del Method Room Air 06/22/23 06:45 Pain score (VAS): 1 Post-procedural complaints: none Patient feedback: Patient satisfied with anesthetic care.
[2023-06-22] MEDS: FERROUS SULFATE 325 MG TABLET DR PO (10:51)
[2023-06-22] MEDS: MULTIVIT/MIN/PREN/FOL AC/IRON TABLET 1 TAB PO (10:51)
[2023-06-22] MEDS: PANTOPRAZOLE 40 MG TABLET PO (10:51)
[2023-06-22] MEDS: POTASSIUM CHLORIDE 20 MEQ ER TABLET 40 MEQ PO (10:51)
[2023-06-22] MEDS: MAGNESIUM OXIDE 200 MG TABLET PO (10:52)
[2023-06-22] MEDS: SERTRALINE HCL 50 MG TABLET 200 MG PO (10:57)
[2023-06-23 10:19] VITALS: BP 139/78; PULSE 68; RESP 18; TEMP 36.6; O2SAT 100
== END 2023-06-22 12:06 | disposition home or self-care (01) | DRG 807 ==
LOC: ANHLDR 06-21 10:36 → ANHOB2 06-21 13:48
PROVIDERS: Advanced Practice Midwife; Admitting Provider Obstetrics & Gynecology Gynecology; PCP Family Medicine; Visit Provider Obstetrics & Gynecology Gynecology
DX: O14.04 Mild to moderate pre-eclampsia, complicating childbirth (principal); Z37.0 Single live birth; O99.283 Endocrine, nutritional and metabolic diseases complicating pregnancy, third trimester; O69.1XX0 Labor and delivery complicated by cord around neck, with compression, not applicable or unspecified; O99.344 Other mental disorders complicating childbirth; F41.8 Other specified anxiety disorders; Z3A.37 37 weeks gestation of pregnancy; Z67.91 Unspecified blood type, Rh negative; E87.6 Hypokalemia
CPT/HCPCS: 36415; 80053; 84132; 84550; 85014; 85018; 85025; 86592; 86850; 86880; 86900; 86901; 86902; 88307; A9270; J2590; J2795; J3010; J3480; J7040; J7120

== ENCOUNTER 2023-11-26 08:13 | Emergency (ER) | payer OTHER, BC, SELFPAY ==
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
[2023-11-26 08:25] VITALS: BP 127/108; PULSE 97; RESP 20; TEMP 37; O2SAT 100
[2023-11-26] MEDS: ACETAMINOPHEN 500 MG TABLET 1000 MG PO (08:46)
[2023-11-26 09:18] VITALS: BP 115/69; PULSE 87; RESP 20; O2SAT 100
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
== END 2023-11-26 10:19 | disposition home or self-care (01) ==
PROVIDERS: Emergency Provider Emergency Medicine
DX: S80.12XA Contusion of left lower leg, initial encounter (principal); R07.89 Other chest pain; V43.52XA Car driver injured in collision with other type car in traffic accident, initial encounter
CPT/HCPCS: 71045; 73590; 99284; A9270